=== PATIENT | female | born 1960 | race Caucasian/White ===

== ENCOUNTER 2023-04-22 13:29 | Outpatient (OUT) | payer OTHER, SELFPAY ==
--- NOTE | 2023-04-22 13:34 | XR_ITS ---
The [address] [address] Patient Name: EMILY NEGRETE MRN: [id number] date: 1960 Sex: F Assigned Patient Location: [facility] Current Patient Location: Accession/Order Number: [id number] Exam Date: 04/22/2023 13:45 Report Date: 04/23/2023 08:04 At the request of: MAREN RIGGINS Procedure: XR knee LT 3V PROCEDURE: XR knee LT 3V HISTORY: Knee Contusion S80.00XA ; left knee pain since falling one week ago COMPARISON: None. FINDINGS: BONES:Small periarticular degenerative osteophytes involving all 3 compartments. No significant joint space narrowing or articular surface irregularity. No fracture or dislocation. SOFT TISSUES:No visible soft tissue swelling. EFFUSION:None visible. OTHER: Negative. XR/XR knee LT 3V IMPRESSION: 1. Mild to moderate degenerative joint disease. No acute bone abnormality. Electronically authenticated by: BATSHEVA AGUIRRE Date: 04/23/2023 08:04
--- OUTSIDE RECORDS SUMMARY | 2023-05-21 21:16 | XMS_ITS | CCD ---
Author Name Unknown Address [address] [place] [address] Organization [facility] Care Team Providers Care Manager Access Name Role Phone Maren Maldonado Primary Care Physician REQUEST, DR SY LISTED Admitting Unavaila ble REQUEST, DR SY LISTED Attending Unavaila ble HOY ., DR ENGEL Primary Care Unavailable REQUEST, DR SY LISTED Consulting Unavaila ble GRILLIS ., DR ALL [place]es [place] Admitting Unavaila ble GRILLIS ., DR ALL [place]es [place] Attending Unavaila ble HOY ., DR ENGEL Primary Care Unavailable GRILLIS ., DR ALL [place]es [place] Consulting Unavaila ble SHARP, CHELI Consulting Unavailable GEMBUS, TAY Consulting Unavailable HOY ., DR ENGEL Admitting Unavailable HOY ., DR ENGEL Attending Unavailable HOY ., DR ENGEL Primary Care Unavailable HOY ., DR ENGEL Consulting Unavailable ZIEBER, DR LUCIO Francisco Consulting Unavailable HOY ., DR ENGEL Admitting Unavailable HOY ., DR ENGEL Attending Unavailable HOY ., DR ENGEL Primary Care Unavailable HOY ., DR ENGEL Consulting Unavailable HOY ., DR ENGEL Admitting Unavailable HOY ., DR ENGEL Attending Unavailable HOY ., DR ENGEL Primary Care Unavailable HOY ., DR ENGEL Consulting Unavailable GRILLIS ., DR ALL [place]es [place] Admitting Unavaila ble GRILLIS ., DR ALL [place]es [place] Attending Unavaila ble HOY ., DR ENGEL Primary Care Unavailable GRILLIS ., DR ALL [place]es [place] Consulting Unavaila ble HOY ., DR ENGEL Admitting Unavailable HOY ., DR ENGEL Attending Unavailable HOY ., DR ENGEL Primary Care Unavailable HOY ., DR ENGEL Consulting Unavailable ZIEBER, DR LUCIO Francisco Consulting Unavailable Allergies Allergy Classification Reported Allergen(s) Allergy Type Date of Onset Reaction(s) Facility (1 source) Sulfonamides (Antibiotic); Translations: [sulfa drugs] Drug allergy Edema (finding) [facility] [place] (1 source) Sulfonamides (Antibiotic) Drug allergy (disorder) [facility] Repository Medications Current Medications Medication Drug Class(es) Dates Sig (Normalized) Sig (Original) aspirin 81 mg oral tablet (1 source) Platelet Aggregation Inhibitor, Nonsteroidal Anti-inflammatory Drug Start: 10-24-2021 take 1 tablet by mouth once daily aspirin 81 mg Oral EC Tab 81 mg = 1 tab(s), Oral, Daily, Refills(s) 0 Start Date: 10/24/21 Status: Ordered Diclofenac 75mg Tab-DR (1 source) Start: 10-20-2021 take 1 tablet by mouth twice daily Diclofenac 75mg Tab-DR = 1 tab(s), Oral, BID, Refills(s) 0 Start Date: 10/20/21 Status: Ordered Maxalt ESCROW ASSISTANT 10 mg Tab-Dis (1 source) Start: 10-20-2021 take 1 tablet by mouth once Maxalt ESCROW ASSISTANT 10 mg Tab-Dis 10 mg = 1 tab(s), Oral, Once, Refills(s) 0 Start Date: 10/20/21 Status: Ordered metoprolol tartrate 50 mg oral tablet (1 source) beta-Adrenergic Damian Start: 10-20-2021 take 1 tablet by mouth three times daily Metoprolol tartrate 50 mg Tab 50 mg = 1 tab(s), Oral, TID, Refills(s) 0 Start Date: 10/20/21 Status: Ordered rosuvastatin calcium 5 mg oral tablet (1 source) HMG-CoA Reductase Inhibitor Start: 10-20-2021 take 1 tablet by mouth once daily Crestor 5 mg Tab 5 mg = 1 tab(s), Oral, Daily, Refills(s) 0 Start Date: 10/20/21 Status: Ordered 24 hr venlafaxine 75 mg extended release oral tablet (1 source) Serotonin and Norepinephrine Reuptake Inhibitor Start: 10-20-2021 take 1 capsule by mouth once daily venlafaxine 75 mg Cap-ER 75 mg = 1 cap(s), Oral, Daily, Refills(s) 0 Start Date: 10/20/21 Status: Ordered Vitamin D3 5000 intl units oral capsule (1 source) Start: 10-20-2021 take 1 capsule by mouth once daily at mealtime Vitamin D3 5000 intl units oral capsule 125 mcg = 1 cap(s), Oral, Daily, with food Start Date: 10/20/21 Status: Ordered Problems Active Problems Problem Classification Problem Date Documented Date Episodic/Chronic Disorders of lipid metabolism (2 sources) Hyperlipidemia; Translations: [Pure hypercholesterolemia, unspecified] Onset: 02-26-2022 10-20-2021 Chronic Diverticulosis and diverticulitis (1 source) Diverticulosis of large intestine without perforation or abscess without bleeding; Translations: [DVRTCLOS LG INT NO PERF/ABSC W/O BL] Onset: 02-26-2022 Chronic Esophageal disorders (1 source) Gastroesophageal reflux disease 10-20-2021 Chronic Essential hypertension (2 sources) Hypertensive disorder; Translations: [Essential (primary) hypertension] Onset: 02-26-2022 10-20-2021 Chronic Gastroduodenal ulcer (except hemorrhage) (1 source) Gastric ulcer, unspecified as acute or chronic, without hemorrhage or perforation; Translations: [GASTR ULCR UNS AC/CHRN W/O HEM/PERF] Onset: 02-26-2022 Chronic Headache; including migraine (1 source) Migraine 10-20-2021 Chronic Mood disorders (1 source) Mood disorder 10-20-2021 Chronic Noninfectious gastroenteritis (1 source) Chronic diarrhea 10-20-2021 Episodic Nutritional deficiencies (1 source) Vitamin D deficiency 10-20-2021 Chronic Other skin disorders (1 source) Senile hyperkeratosis; Translations: [Other seborrheic keratosis] Onset: 10-24-2021 Episodic Other upper respiratory disease (1 source) Seasonal allergic rhinitis 10-20-2021 Chronic Residual codes; unclassified (1 source) Obstructive sleep apnea syndrome 10-20-2021 Chronic Spondylosis; intervertebral disc disorders; other back problems (1 source) Spinal stenosis in cervical region 10-20-2021 Episodic Unclassified (1 source) Seborrheic keratosis 10-24-2021 Unclassified (1 source) ESOPHAGITIS UNSPEC WITHOUT BLEEDING; Translations: [ESOPHAGITIS UNSPEC WITHOUT BLEEDING] Onset: 02-26-2022 Unclassified (4 sources) CONTACT W/AND (SUSP) EXPOS COVID-19; Translations: [CONTACT W/AND (SUSP) EXPOS COVID-19] Onset: 09-01-2022 Past or Other Problems Problem Classification Problem Date Documented Da te Episodic/Chronic Deficiency and other anemia (4 sources) Anemia, unspecified; Translations: [ANEMIA UNSPECIFIED] Onset: 01-16-2022 Episodic Other connective tissue disease (4 sources) Pain in right lower leg; Translations: [PAIN IN RIGHT LOWER LEG] Onset: 11-23-2021 Episodic Other gastrointestinal disorders (4 sources) Other fecal abnormalities; Translations: [OTHER FECAL ABNORMALITIES] Onset: 02-21-2022 Episodic Other gastrointestinal disorders (1 source) Change in bowel habit; Translations: [CHANGE IN BOWEL HABIT] Onset: 01-17-2022 Episodic Other screening for suspected conditions (not mental disorders or infectious disease) (4 sources) Encounter for screening mammogram for malignant neoplasm of breast; Translations: [ENC SCR MAMMO MALIG NEOPLASM BREAST] Onset: 11-14-2021 Episodic Residual codes; unclassified (1 source) Acquired absence of both cervix and uterus; Translations: [ACQUIRED ABSENCE BOTH CERVIX AND UTERUS] Onset: 02-26-2022 Episodic Residual codes; unclassified (1 source) Family history of malignant neoplasm of breast; Translations: [FAMILY HX MALIG NEOPLASM OF BREAST] Onset: 12-11-2021 Episodic Unclassified (1 source) CONTACT W/AND (SUSP) EXPOS COVID-19; Translations: [CONTACT W/AND (SUSP) EXPOS COVID-19] Onset: 01-31-2022 Results Test Name Value Interpretation Reference Range Facil ity CBC AUTO DIFFon 08-17-2022 BASO # 0.0 103/ul Normal 0.0-0.1 [facility] ospital Comment on above: Performed By: #### D ATCBC ####[facility] [address] [place] [address]Dr. Zi Finley Basophils/100 WBC (Bld) 0.4 % Normal 0.2-2.0 [facility] Comment on above: Performed By: #### D ATCBC ####[facility] [address] [place] [id number] Finley EO # 0.1 103/ul Normal 0.0-0.7 [facility] ospital Comment on above: Performed By: #### D ATCBC ####[facility] [address] [place], [place] [address]Dr. Zi Finley Eosinophils/100 WBC (Bld) 1.3 % Normal 0.9-7.[address] [facility] Comment on above: Performed By: #### D ATCBC ####[facility] [address] [place], [place] [address]Dr. Zi Finley Erythrocyte distribution wid th (RBC) [Ratio] 13.2 % Normal 11.0-15.0 [facility] Comment on above: Performed By: #### D ATCBC ####[facility] [address] [place], [place] [address]Dr. Zi Finley Hematocrit (Bld) [Volume fraction] 41.1 % Normal 3 6.0-48.[address] [facility] Comment on above: Performed By: #### D ATCBC ####[facility] [address] [place], [place] [address]Dr. Zi Finley Hemoglobin (Bld) [Mass/Vol] 13.2 g/dL Normal 12.0-16. [address] [facility] Comment on above: Performed By: #### D ATCBC ####[facility] [address] [place], [place] [address]Dr. Zi Finley IG # 0.04 10e3/ul Critically high 0.00-0.03 [facility] Comment on above: Performed By: #### D ATCBC ####[facility] [address] [place], [place] [address]Dr. Zi Finley IG % 0.4 % Normal 0.0-0.5 [facility] ospital Comment on above: Performed By: #### D ATCBC ####[facility] [address] [place], [place] [address]Dr. Zi Finley LYMPH # 3.2 103/ul Normal 1.2-3.8 [facility] Comment on above: Performed By: #### D ATCBC ####[facility] [address] [place], [place] [address]Dr. Zi Finley Lymphocytes/100 WBC (Bld) 34.0 % Normal 20.5-60.[address] [facility] Comment on above: Performed By: #### D ATCBC ####[facility] [address] [place] [id number]. Zi Tushar MCH (RBC) [Entitic mass] 29.9 pg Normal 26.7-34.0 [facility] Comment on above: Performed By: #### D ATCBC ####[facility] [address] [place], [place] [id number]. Didimaryuri Tushar MCHC (RBC) [Mass/Vol] 32.1 g/dL Normal 29.9-35.2 [facility] Comment on above: Performed By: #### D ATCBC ####[facility] [address] [place], [place] [address]Dr. Zi Finley MCV (RBC) [Entitic vol] 93.2 fL Normal 81.0-99.0 [facility] Comment on above: Performed By: #### D ATCBC ####[facility] [address] [place], [place] [address]Dr. Zi Finley MONO # 0.8 103/ul Normal 0.3-0.8 [facility] Comment on above: Performed By: #### D ATCBC ####[facility] [address] [place], [place] [address]Dr. Zi Finley Monocytes/100 WBC (Bld) 8.4 % Normal 1.7-12.0 [facility] Comment on above: Performed By: #### D ATCBC ####[facility] [address] [place], [place] [address]Dr. Zi Finley NEUT # 5.2 103/ul Normal 1.4-6.5 [facility] Comment on above: Performed By: #### D ATCBC ####[facility] [address] [place], [place] [address]Dr. Zi Finley Neutrophils/100 WBC (Bld) 55.5 % Normal 43.0-75.0 [facility] Comment on above: Performed By: #### D ATCBC ####[facility] [address] [place], [place] [address]Dr. Zi Finley Platelet mean volume (Bld) [Entitic vol] 8.8 fL Critically low 9.5-13.5 [facility] pital Comment on above: Performed By: #### D ATCBC ####[facility] [address] [place] [id number] Finley PLT 300 103/ul Normal 150-450 [facility] ospital Comment on above: Performed By: #### D ATCBC ####[facility] [address] [place] [id number] Finley RBC 4.41 106/ul Normal 4.20-5.[address] [facility] Comment on above: Performed By: #### D ATCBC ####[facility] [address] [place] [address]Dr. Zi Finley WBC 9.3 103/ul Normal 4.0-11.0 [facility] ospital Comment on above: Performed By: #### D ATCBC ####[facility] [address] [place] [id number]. Zi Finley BLANCA - TSHon 08-17-2022 TSH 1.594 uIU/mL Normal 0.358-3.740 [facility] Comment on above: Performed By: #### D BLANCA VALENCIABMP #### [facility] [address] [place] [address] [address] Zi Finley TSH RANGE SEE BELOW Normal [facility] ospital Comment on above: Result Comment: <0.3 4 UIU/ml HYPERTHYROID 0.34-5.60 UIU/ml EUTHYROID >5.60 UIU/ml HYPOTHYROID Performed By: #### D BLANCA VALENCIABMP #### [facility] [address] [address] [address] Zi Finley BLANCA- BMP WITH LIPIDon 2022 Anion gap [Moles/Vol] 9.4 mmol/L Normal [facility] Comment on above: Performed By: #### D BLANCA VALENCIABMP #### [facility] [address] [address] [address] Zi Finley Calcium [Mass/Vol] 9.7 mg/dL Normal 8.5-10.1 [facility] Comment on above: Performed By: #### D ERIK DATBMP #### [facility] [address] [address] [address] Zi Finley Chloride [Moles/Vol] 107 mmol/L Normal 98-[address] [facility] Comment on above: Performed By: #### D ERIK DATBMP #### [facility] [address] [address] [address] Zi Finley Cholesterol [Mass/Vol] 254 mg/dL Critically high <=[address] [facility] Comment on above: Performed By: #### D ERIK DATBMP #### [facility] [address] [place] [address] Dr. Zi Finley Cholesterol in HDL [Mass/Vol] 70 mg/dL Critically high 4 0-60 [facility] Comment on above: Performed By: #### D ERIK DATBMP #### [facility] [address] [place] [address] Dr. Zi Finley Cholesterol in LDL [Mass/Vol] 153.2 mg/dL Normal [facility] Comment on above: Performed By: #### D ERIK DATBMP #### [facility] [address] [place] [address] Dr. Zi Finley CO2 [Moles/Vol] 32.9 mmol/L Critically high 21.0-32.0 [facility] Comment on above: Performed By: #### D ERIK DATBMP #### [facility] [address] [place] [address] Dr. Zi Finley Creatinine [Mass/Vol] 0.79 mg/dL Normal 0.55-1.02 [facility] Comment on above: Performed By: #### D ERIK DATBMP #### [facility] [address] [place] [address] Dr. Zi Finley EGFR-AF MALAGASY >60 Normal >=60 [facility] Comment on above: Performed By: #### D ERIK DATBMP #### [facility] [address] [address] [address] Zi Finley EGFR-NON AF MALAGASY >60 Normal >=60 [facility] Comment on above: Performed By: #### D ATTLINWOOD DATBMP #### [facility] [address] [address] [address] Zi Finley Glucose [Mass/Vol] 109 mg/dL Critically high 74-106 [facility] Comment on above: Performed By: #### D ATTLINWOOD, DATBMP #### [facility] [address] [address] [address] Zi Finley HDL NORMAL > or = 60 mg/dl - LO W CARDIOVASCULAR RISK <40 mg/dl - HIGH CARDIOVASCULAR RISK Normal [facility] Comment on above: Performed By: #### D ATTLINWOOD DATBMP #### [facility] [address] [place] [address] Dr. Zi Finley LDL CALC NORMAL SEE BELOW Normal [facility] Comment on above: Result Comment: <100 mg/dl OPTIMAL 100 - 129 mg/dl NEAR OR ABOVE OPTIMAL 130 - 159 mg/dl BORDERLINE HIGH 160 - 189 mg/dl HIGH >190 mg/dl VERY HIGH Performed By: #### D ERIK DATBMP #### [facility] [address] [address] [address] Zi Finley Potassium [Moles/Vol] 4.3 mmol/L Normal 3.5-5.1 [facility] Comment on above: Performed By: #### D ERIK DATBMP #### [facility] [address] [address] [address] Zi Finley Sodium [Moles/Vol] 145 mmol/L Normal 136-145 [facility] Comment on above: Performed By: #### D ATTLINWOOD DATBMP #### [facility] [address] [address] [address] Zi Finley Triglyceride [Mass/Vol] 154 mg/dL Critically high <=150 [facility] Comment on above: Performed By: #### D ATTLINWOOD DATBMP #### [facility] [address] [address] [address] Zi Finley Urea nitrogen [Mass/Vol] 21.0 mg/dL Critically high 7.0-[address] [facility] Comment on above: Performed By: #### D ATTSH, DATBMP #### [facility] [address] [address] [address] Zi Finley Urea nitrogen/Creatinine [Mass ratio] 26.6 mg/mg Normal [facility] Comment on above: Performed By: #### D ATTSH, DATBMP #### [facility] [address] [address] [address] Zi Finley VLDL CALC 30.8 mg/dL Normal [facility] ospital Comment on above: Performed By: #### D ATTSH, DATBMP #### [facility] [address] [address] [address] Zi Finley H PYLORI TISSUEon 02-21-2022 H PYL TISSUE, UREASE Negative Normal NEGATIVE [facility] Comment on above: Performed By: #### H PYLT #### [facility] [address] [address] [address] Zi Finley [facility]01 SARS-CoV-2 (COVID-19) RNA VINEET+probe Ql (Unsp spec) Not detected Normal NOT DETECTED [facility] Comment on above: Result Comment: This test is not yet approved or cleared by the [place] FDA. When there are no FDA-approved or cleared tests available, and other criteria are met, FDA can make tests available under an emergency access mechanism called an Emergency Use Authorization (EUA). The EUA for this test is supported by the [place] of Health and Human Service's (HHS's) declaration that circumstances exist to justify the emergency use of in vitro diagnostics for the detection and/or diagnosis of the virus that causes COVID-19. This EUA will remain in effect (meaning this test can be used) for the duration of the COVID-19 declaration justifying emergency of IVDs, unless it is terminated or revoked by FDA (after which the test may no longer be used). When diagnostic testing is negative, the possibility of a false negative should be considered in the context of a patient's recent exposures and the presence of clinical signs and symptoms consistent with SARS-CoV-2. Performed By: #### C VDTBH #### [facility] [address] [address] [address] Zi Finley Covid-19 PCR ([facility])on 01-03 SARS-CoV-2 (COVID-19) RNA VINEET+probe Ql (Unsp spec) Not detected Normal NOT DETECTED [facility] Comment on above: Result Comment: When diagnostic testing is negative, the possibility of a false negative should be considered in the context of a patient's recent exposures and the presence of clinical signs and symptoms consistent with SARS-CoV-2. This test is not yet approved or cleared by the [place] FDA. When there are no FDA-approved or cleared tests available, and other criteria are met, FDA can make tests available under an emergency access mechanism called an Emergency Use Authorization (EUA). The EUA for this test is supported by the [place] of Health and Human Service's declaration that circumstances exist to justify the emergency use of in vitro diagnostics for the detection and/or diagnosis of the virus that causes COVID-19. This EUA will remain in effect for the duration of the COVID-19 declaration justifying emergency of IVDs, unless it is terminated or revoked by the FDA (after which the test may no longer be used). Performed By: #### C VDTBH #### [facility] [address] [place] [address] [address] [address] Zi Finley BLEEDING TIMEon 01-16-2022 BLEEDING TIME 6.0 min Normal 1.0-8.0 [facility] Comment on above: Performed By: #### B LTM ####[facility] [address] [place], [place] [address]Dr. Zi Finley CBC AUTO DIFFon 01-16-2022 BASO # 0.1 103/ul Normal 0.0-0.1 [facility] Comment on above: Performed By: #### C BC #### [facility] [address] [place], [place] [address] Dr. Zi Finley Basophils/100 WBC (Bld) 0.6 % Normal 0.2-2.0 [facility] Comment on above: Performed By: #### C BC #### [facility] [address] [place] [address] Dr. Zi Finley EO # 0.3 103/ul Normal 0.0-0.7 [facility] ospital Comment on above: Performed By: #### C BC #### [facility] [address] [place] [address] Dr. Zi Finley Eosinophils/100 WBC (Bld) 3.2 % Normal 0.9-7.0 [facility] Comment on above: Performed By: #### C BC #### [facility] [address] [place] [address] Dr. Zi Finley Erythrocyte distribution wid th (RBC) [Ratio] 13.1 % Normal 11.0-15.0 [facility] Comment on above: Performed By: #### C BC #### [facility] [address] [place] [address] Dr. Zi Finley Hematocrit (Bld) [Volume fraction] 40.9 % Normal 3 6.0-48.0 [facility] Comment on above: Performed By: #### C BC #### [facility] [address] [place] [address] Dr. Zi Finley Hemoglobin (Bld) [Mass/Vol] 13.0 g/dL Normal 12.0-16. 0 [facility] Comment on above: Performed By: #### C BC #### [facility] [address] [place] [address] Dr. Zi Finley IG # 0.03 10e3/ul Normal 0.00-0.[address] [facility] Comment on above: Performed By: #### C BC #### [facility] [address] [place] [address] Dr. Zi Finley IG % 0.3 % Normal 0.0-0.5 [facility] Comment on above: Performed By: #### C BC #### [facility] [address] [place] [address] Dr. Zi Finley LYMPH # 3.1 103/ul Normal 1.2-3.8 [facility] Comment on above: Performed By: #### C BC #### [facility] [address] [place] [address] Dr. Zi Finley Lymphocytes/100 WBC (Bld) 35.6 % Normal 20.5-60.0 [facility] Comment on above: Performed By: #### C BC #### [facility] [address] [place] [address] Dr. Zi Finley MANUAL DIFF REQ NO Normal [facility] Comment on above: Performed By: #### C BC #### [facility] [address] [place] [address] Dr. Zi Finley MCH (RBC) [Entitic mass] 29.5 pg Normal 26.7-34.0 [facility] Comment on above: Performed By: #### C BC #### [facility] [address] [place] [address] Dr. Zi Finley MCHC (RBC) [Mass/Vol] 31.8 g/dL Normal 29.9-35.2 [facility] Comment on above: Performed By: #### C BC #### [facility] [address] [place] [address] Dr. Zi Finley MCV (RBC) [Entitic vol] 93.0 fL Normal 81.0-99.0 [facility] Comment on above: Performed By: #### C BC #### [facility] [address] [place] [address] Dr. Zi Finley MONO # 0.8 103/ul Normal 0.3-0.8 [facility] Comment on above: Performed By: #### C BC #### [facility] [address] [place] [address] Dr. Zi Finley Monocytes/100 WBC (Bld) 8.5 % Normal 1.7-12.0 [facility] Comment on above: Performed By: #### C BC #### [facility] [address] [place] [address] Dr. Zi Finley NEUT # 4.6 103/ul Normal 1.4-6.5 [facility] ospital Comment on above: Performed By: #### C BC #### [facility] [address] [place], [place] [address] Dr. Zi Finley Neutrophils/100 WBC (Bld) 51.8 % Normal 43.0-75.0 [facility] Comment on above: Performed By: #### C BC #### [facility] [address] [address] [address] Zi Finley Platelet mean volume (Bld) [Entitic vol] 9.1 fL Critically low 9.5-13.5 [facility] pital Comment on above: Performed By: #### C BC #### [facility] [address] [address] [address] Zi Finley PLT 292 103/ul Normal 150-450 [facility] Comment on above: Performed By: #### C BC #### [facility] [address] [address] [address] Zi Finley RBC 4.40 106/ul Normal 4.20-5.[address] [facility] Comment on above: Performed By: #### C BC #### [facility] [address] [address] [address] Zi Finley WBC 8.8 103/ul Normal 4.0-11.0 [facility] Comment on above: Performed By: #### C BC #### [facility] [address] [address] [address] Zi Finley IRONon 01-16-2022 Iron [Mass/Vol] 66.0 ug/dL Normal 50.0-170.0 [facility] Comment on above: Performed By: #### I LUKE #### [facility] [address] [address] [address] Zi Finley PROTIMEon 01-16-2022 INR Coag (PPP) [Relative time] 1.04 {INR} Normal [facility] Comment on above: Performed By: #### P T, PTT ####[facility] [id number] [address]Dr. Zi Finley INR GUIDELINES SEE BELOW Normal The [facility] Comment on above: Result Comment: ANGELY RED INR: 2.0 - 3.0 CONDITIONS NOT LISTED BELOW 2.5 - 3.5 FOR PROSTHETIC HEART VALVE REPLACEMENT 2.5 - 3.5 RECURRENT THROMBOSIS Performed By: #### P T, PTT ####[facility] [id number] [place], [place] [address]ZqDr. Zi Finley PT Coag (PPP) [Time] 11.2 s Normal 9.0-11.6 [facility] Comment on above: Performed By: #### P T, PTT ####[facility] [id number] [place], [place] [address]HaRob Finley PTTon 01-16-2022 aPTT Coag (Bld) [Time] 25.1 s Normal 22.3-36.2 Th [facility] Comment on above: Performed By: #### P T, PTT #### [facility] [address] [place], [place] [address] Dr. Zi Finley US LYNDON DOP LEG RTon 11-24-19 22 US LYNDON DOP LEG RT EXAMINATION: US LYNDON DOP LEG RT HISTORY: Hip pain , right calf pain for one month COMPARISON: No relevant comparison available. FINDINGS: REGION: Right lower extremity THROMBI: None. COMPRESSIBILITY: Normal compressibility. FLOW: Normal waveform and antegrade flow between 5 and 20 cm/s. OTHER: None. IMPRESSION: 1. No deep vein thrombus within the right lower extremity. Electronically authenticated by: LUCIO RAMIREZ Date: 2021-11-23 16:51 Normal [facility] MAMM SCREEN 3D MARCIA CADon 11-14-2021 MG MAMM SCREEN 3D MARCIA CAD Patient: EMILY NEGRETE Exam Date: 11/14/2021 : 1960 Gender:F Ordering : DR MAREN MALDONADO . Admission #: [id number] Family : Order #: [id number] CLICK HERE TO VIEW EXAM RADIOLOGY REPORT PROCEDURE: MAMMOGRAM SCREENING 3D BILATERAL CAD COMPARISON: MG MAMM SCREEN 3D MARCIA CAD, 10/21/2020. MG MAMM LT DIAG W CAD, 07/10/2019. INDICATIONS: Screening mammography Calculator Name NCI Breast Cancer Risk Assessment Tool 5 Year Breast Cancer Risk 4.70% Lifetime Breast Cancer Risk 20.70% Personal Breast Cancer No Personal Ovarian Cancer No Treatments None Family Cancers Sister with breast cancer at age 37. LOCATION: [facility] BREAST COMPOSITION: Scattered areas fibroglandular density. FINDINGS: DIAGNOSTIC CATEGORY 2--BENIGN FINDING: RIGHT BREAST: No significant suspicious finding. Scattered benign-appearing nodules are present. No significant change has occurred. LEFT BREAST: No significant suspicious finding. Stable biopsy marker clip within the anterior upper-outer quadrant. No significant change has occurred. RECOMMENDATIONS: ROUTINE MAMMOGRAM AND CLINICAL EVALUATION IN 12 MONTHS. PLEASE NOTE: A NORMAL MAMMOGRAM DOES NOT EXCLUDE THE POSSIBILITY OF BREAST CANCER. A CLINICALLY SUSPICIOUS PALPABLE LUMP SHOULD BE BIOPSIED. Dictated by: Lucio Ramirez M.D. on 11/14/2021 at 13:48 Approved by: Lucio Ramirez M.D. on 11/14/2021 at 13:50 Normal [facility] Ambulatory Visit Summaryon 0 10-24-2021 Ambulatory Visit Summary EMILY NEGRETE :1960 Visit Date:10/24/2021 Ambulatory Visit Instructions Your Diagnosis Seborrheic keratoses Your Care Team Attending Physician - VIKASH ESPINOZA, All [place] Primary Care Physician - Maren Maldonado MD This Is Your Medications List aspirin (aspirin 81 mg Oral EC Tab) cholecalciferol (Vitamin D3 5000 intl units oral capsule) diclofenac (Diclofenac 75mg Tab-DR) metoprolol (Metoprolol tartrate 50 mg Tab) rizatriptan (Maxalt ESCROW ASSISTANT 10 mg Tab-Dis) rosuvastatin (Crestor 5 mg Tab) venlafaxine (venlafaxine 75 mg Cap-ER) Procedures Performed History of cervical spine surgery, History of lumbar spine surgery, Rotator cuff repair, EMMA BSO - Total abdominal hysterectomy and bilateral salpingo-oophorectomy, Tubal ligation. Discharge Vitals Heart Rate (Peripheral) 80 Respiratory Rate 16 Blood Pressure 136/72 Medications What How Much When Instructions Unchanged aspirin (aspirin 81 mg Oral EC Tab) 1 Tablets By Mouth Every day Unchanged cholecalciferol (Vitamin D3 5000 intl units oral capsule) 1 Capsules By Mouth Every day with food Unchanged diclofenac (Diclofenac 75mg Tab-DR) 1 Tablets By Mouth 2 times a day Unchanged metoprolol (Metoprolol tartrate 50 mg Tab) 1 Tablets By Mouth 3 times a day Unchanged rizatriptan (Maxalt ESCROW ASSISTANT 10 mg Tab-Dis) 1 Tablets By Mouth Once Unchanged rosuvastatin (Crestor 5 mg Tab) 1 Tablets By Mouth Every day Unchanged venlafaxine (venlafaxine 75 mg Cap-ER) 1 Capsules By Mouth Every day Allergies sulfa drugs (Edema) Problems Ongoing - Any problem that you are currently receiving treatment for. Cervical spinal stenosis Chronic diarrhea GERD (gastroesophageal reflux disease) HTN (hypertension) Hyperlipidemia Migraine headache Mood disorder WHITLEY (obstructive sleep apnea) Seasonal allergic rhinitis Seborrheic keratoses Vitamin D deficiency Normal [facility] Comprehensive Metabolic Empo n 03-31-2021 Albumin [Mass/Vol] 4.0 g/dL Normal 3.2-5.5 [facility] Comment on above: Performed By: #### E BS A1C, EBS LIPID, EBS CMP #### [facility] [address] [id number] [place] Albumin/Globulin [Mass ratio] 1.4 {ratio} Normal [facility] Comment on above: Performed By: #### E BS A1C, EBS LIPID, EBS CMP #### [facility] [address] [place] [address] [place] ALP [Catalytic activity/Vol] 80 U/L Normal 32-92 [facility] Comment on above: Performed By: #### E BS A1C, EBS LIPID, EBS CMP #### [facility] [address] [place] [address] [place] ALT [Catalytic activity/Vol] 21 U/L Normal 10-60 [facility] Comment on above: Performed By: #### E BS A1C, EBS LIPID, EBS CMP #### [facility] [address] [place] [address] [place] AST [Catalytic activity/Vol] 20 U/L Normal 10- [facility] Comment on above: Performed By: #### E BS A1C, EBS LIPID, EBS CMP #### [facility] [address] [place] [address] [place] Bilirubin [Mass/Vol] 0.7 mg/dL Normal 0.3-1.2 [facility] Comment on above: Performed By: #### E BS A1C, EBS LIPID, EBS CMP #### [facility] [address] Calcium [Mass/Vol] 9.9 mg/dL Normal 8.2-10.2 [facility] Comment on above: Performed By: #### E BS A1C, EBS LIPID, EBS CMP #### [facility] [address] Chloride [Moles/Vol] 102 mmol/L Normal 95-114 [facility] Comment on above: Performed By: #### E BS A1C, EBS LIPID, EBS CMP #### [facility] [address] CO2 [Moles/Vol] 27.2 mmol/L Normal 22.0-30.0 [facility] Comment on above: Performed By: #### E BS A1C, EBS LIPID, EBS CMP #### [address] Creatinine [Mass/Vol] 0.81 mg/dL Normal 0.44-1.03 [facility] Comment on above: Performed By: #### E BS A1C, EBS LIPID, EBS CMP #### [address] Estimated GFR ( Lisa > 60 [facility] [place] Comment on above: Result Comment: GFR estimated reference range: According to KDOQI guidelines, <60 ml/min/1.73m2 is sufficient to diagnose a patient with chronic kidney disease. Performed By: #### E BS A1C, EBS LIPID, EBS CMP #### [address] Estimated GFR (Non- Am > 60 [facility] [place] Comment on above: Performed By: #### E BS A1C, EBS LIPID, EBS CMP #### [address] Globulin (S) [Mass/Vol] 2.9 g/dL Normal [facility] Comment on above: Performed By: #### E BS A1C, EBS LIPID, EBS CMP #### [address] Glucose [Mass/Vol] 106 mg/dL High 70-100 [facility] Comment on above: Result Comment: ADA recommended reference range Performed By: #### E BS A1C, EBS LIPID, EBS CMP #### [facility] [address] Potassium [Moles/Vol] 5.1 mmol/L Normal 3.5-5.1 [facility] Comment on above: Performed By: #### E BS A1C, EBS LIPID, EBS CMP #### [facility] [address] Protein [Mass/Vol] 6.9 g/dL Normal 6.1-7.9 [facility] Comment on above: Performed By: #### E BS A1C, EBS LIPID, EBS CMP #### [facility] [address] Sodium [Moles/Vol] 139 mmol/L Normal 136-146 [facility] Comment on above: Performed By: #### E BS A1C, EBS LIPID, EBS CMP #### [facility] [address] Urea nitrogen [Mass/Vol] 20 mg/dL Normal 9-23 [facility] Comment on above: Performed By: #### E BS A1C, EBS LIPID, EBS CMP #### [facility] [address] EBS A1C with Estimated Avleo Tiff ras 03-31-2021 Glucose [Mass/Vol] 123 mg/dL Normal [facility] Comment on above: Result Comment: PERF ORMED BY: [facility] [address] [place] [address] PATHOLOGIST LUMBER TRIMMER KRISTY FREEMAN M.D. Performed By: #### E BS A1C, EBS LIPID, EBS CMP #### [facility] [address] HbA1c (Bld) [Mass fraction] 5.9 % High 4.3-5.6 [facility] Comment on above: Result Comment: Incr eased risk for diabetes: 5.7 - 6.4 diabetes: >6.4 glycemic control for adults with diabetes: <7.0 Performed By: #### E BS A1C, EBS LIPID, EBS CMP #### [facility] [address] Lipid Profileon 03-31-2021 Cholesterol [Mass/Vol] 233 mg/dL High 140-200 [facility] Comment on above: Result Comment: Chol less than 200 mg/dl low risk Chol 201-239 mg/dl borderline risk Chol 240 mg/dl and greater high risk Performed By: #### E BS A1C, EBS LIPID, EBS CMP #### [facility] [address] Cholesterol in HDL [Mass/Vol] 70 mg/dL Normal 35-85 [facility] Comment on above: Result Comment: HDL CHOL ATP-III CLASSIFICATION Cardiovascular Risk HDL > or equal to 60 mg/dL LOW HDL < 40 mg/dL HIGH Performed By: #### E BS A1C, EBS LIPID, EBS CMP #### [facility] [address] Cholesterol.total/Cholestero l in HDL [Mass ratio] 3.3 {ratio} Normal <5.0 [facility] Comment on above: Result Comment: PERF ORMED BY: [place] [address] PATHOLOGIST LUMBER TRIMMER KRISTY FREEMAN M.D. Performed By: #### E BS A1C, EBS LIPID, EBS CMP #### [facility] [address] LDL Cholesterol,Calculated 132 mg/dL High 0-100 [facility] Comment on above: Result Comment: LDL ATP III CLASSIFICATION LDL less than 100 mg/dL Optimal LDL 100-129 mg/dL Near or above optimal LDL 130-159 mg/dL Borderline high LDL 160-189 mg/dL High LDL greater than 189 mg/dL Very high Performed By: #### E BS A1C, EBS LIPID, EBS CMP #### [facility] [address] [id number] [place] Triglyceride w/Reflex 155 mg/dL High 35-149 [facility] Comment on above: Result Comment: TRIG ATP III CLASSIFICATION TRIG less than 150 mg/dL Normal TRIG 150-199 mg/dL Borderline high TRIG 200-500 mg/dL High TRIG greater than 500 mg/dL Very high Standard traceable to the Center for Disease Conrtrol and Prevention (CDC) test method. Performed By: #### E BS A1C, EBS LIPID, EBS CMP #### [facility] [address] [place] [address] [facility] VLDL CHOLESTEROL 31 mg/dL Normal [facility] Comment on above: Performed By: #### E BS A1C, EBS LIPID, EBS CMP #### [facility] [address] [id number] [facility] Vital Signs Date Time Vital Sign Value Performing Clinician Sabine nayak 10-24-2021 15:23-0400 Blood Pressure Location [facility] 10-24-2021 15:23-0400 Diastolic blood pressure 72 mm[Hg] [facility] 10-24-2021 15:23-0400 Heart rate 80 /min [facility] 10-24-2021 15:23-0400 Respiratory rate 16 /min [facility] [place] 10-24-2021 15:23-0400 Systolic blood pressure 136 mm[Hg] [facility] [place] Encounters Encounter Date Encounter Type Care Provider Facility Start: 08-17-2022 End: 08-18-[address] SY LISTED REQUEST Facility:[facility] Start: 02-21-2022 End: 02-21-[address] ALL RICE . Facility:[facility] Start: 02-19-2022 Encounter for preprocedural laboratory examination DR ALL RICE . [facility] Start: 02-17-2022 End: 02-18-[address] ALL RICE . Facility:[facility] Start: 02-17-2022 End: 02-18-2022 Encounter for preprocedural laboratory examination DR ALL RICE . Facility:[facility] Start: 01-31-2022 End: 02-01-[address] MAREN MALDONADO . Facility:[facility] Start: 01-16-2022 End: 01-17-[address] MAREN MALDONADO . Facility:[facility] Start: 11-23-2021 End: 11-24-[address] MAREN MALDONADO . Facility:[facility] Start: 11-14-2021 End: 11-15-[address] MAREN MALDONADO . Facility:[facility] Start: 10-24-2021 End: 10-24-2021 Patient encounter procedure All [facility] Lam[facility] Procedures Date Procedure Procedure Detail Performing Clinician History of operative procedure on lumbar spinal structure All [facility] History of surgical procedure on cervical spine All [facility] Ligation of fallopian tube Cortney zepeda NILL Repair of musculoten dinous cuff of shoulder All N[facility] Total abdominal hyst erectomy with bilateral salpingo-oophorectomy All [facility] Payers Date Payer Category Payer Unknown [id number] 2.16.84 [id number] 1960 Unknown [id number] 2.16.84 [id number] 1960 Unknown [id number] 2.16.84 [id number] 1960 Unknown [id number] 2.16.84 [id number] 1960 Unknown [id number] 2.16.84 [id number] 1960 Unknown [id number] 2.16.84 [id number] 1959 Self-pay [id number] 1959 Unknown [id number] Unknown [id number] 2.16.84 [id number] Social History Date Type Detail Facility Start: 10-24-2021 Tobacco smoking status Never s moked tobacco (finding) General [facility] Tobacco smoking status Never Gener al Surgery [facility] Sex Assigned At Female Genera l Surgery [facility] Clinical Note 10-24-2021 Note Date & Type Note Facility 10-24-2021 Note Chief Complaint consultation for nevus x 2 HPI Staff 61 year old female presents on self referral consultation for nevus right upper thigh and right lower leg. Both are becoming darker in color. Neither are painful. They do not bleed or itch. History of Present Illness 61 yo female presents for evaluation of changing skin lesion; area above right knee has not changed, no bleeding or pain; lower posterior right extremity with similar lesion, but has changed some in pigmentation around edge of lesion; no itching, no bleeding or ulceration; no personal or fmhx of skin cancer. on baby asa and Diclofenac. Review of Systems PHQ Score Initial Depression Screen Score: 0 ROS - Provider Constitutional: no fever, no sweats, no weight loss. Eyes: no glasses, no blurred vision, no visual loss. ENMT: no dentures, no hoarseness, no swallowing difficulties, no hearing loss, no ear infection(s), no nose bleeds. Cardiovascular: normal blood pressure, no chest pain, regular heartbeat, no heart murmur. Respiratory: no shortness of breath, no cough, no asthma, no wheezing. Gastrointestinal: no nausea, no vomiting, no diarrhea, no constipation, no blood in stool, no change in bowel habits, no abdominal pain, no hepatitis. Genitourinary: no kidney stones, no urine infection, no dysuria. Musculoskeletal: no pain, no weakness. Skin: yes changing moles, no rash, no skin lumps. Neurologic: no seizures, no epilepsy, no headache. Psychiatric: no emotional or psychiatric problem. Heme/Lymph: no bleeding problems, no anemia, no blood clots, no transfusions. Allergy/Immunologic: no swollen lymph nodes/glands, no IV drug abuse. Other: Additional ROS info: Except as noted in the above Review of Systems and in the History of Present Illness, all other systems have been reviewed and are negative or noncontributory. Physical Exam Vitals & Measurements HR: 80(Peripheral) RR: 16 BP: 136/72 Musculoskeletal: normal gait, digits and nails without infection, nodes, cyanosis, clubbing. Skin: no rashes, right anterior lower extremity above knee with 7 mm coughlin lesion, uniform, scaly; posterior lower extremity with 5 mm keratotic, coughlin lesion, round; no ulceration. no ulcers, no subcutaneous nodules, induration. Psychiatric/Neuro: oriented to time, place, person, judgement normal, affect appropriate for age, insight intact, no focal deficits. Tests: review of old records completed, Assessment/Plan 1. Seborrheic keratoses (L82.1: Other seborrheic keratosis) no need for excision at this time, call with problems/questions. Follow-up No qualifying data available Problem List/Past Medical History Ongoing Cervical spinal stenosis Chronic diarrhea GERD (gastroesophageal reflux disease) HTN (hypertension) Hyperlipidemia Migraine headache Mood disorder WHITLEY (obstructive sleep apnea) Seasonal allergic rhinitis Seborrheic keratoses Vitamin D deficiency Historical No qualifying data Procedure/Surgical History History of cervical spine surgery, History of lumbar spine surgery, Rotator cuff repair, EMMA BSO - Total abdominal hysterectomy and bilateral salpingo-oophorectomy, Tubal ligation. Medications aspirin 81 mg Oral EC Tab, 81 mg= 1 tab(s), Oral, Daily Crestor 5 mg Tab, 5 mg= 1 tab(s), Oral, Daily Diclofenac 75mg Tab-DR, 1 tab(s), Oral, BID Maxalt ESCROW ASSISTANT 10 mg Tab-Dis, 10 mg= 1 tab(s), Oral, Once Metoprolol tartrate 50 mg Tab, 50 mg= 1 tab(s), Oral, TID venlafaxine 75 mg Cap-ER, 75 mg= 1 cap(s), Oral, Daily Vitamin D3 5000 intl units oral capsule, 125 mcg= 1 cap(s), Oral, Daily Allergies sulfa drugs (Edema) Social History Alcohol - Denies Alcohol Use, 10/24/2021 Substance Abuse - Denies Substance Abuse, 10/24/2021 Tobacco Never (less than 100 in lifetime) Tobacco Use:. Never Smokeless Tobacco Use:., 10/24/2021 Family History Cardiac arrest: Mother and Father. Primary malignant neoplasm of female breast: Sister. Stroke: Father. [facility] Comment on above: Result Comment: Elec tronically Signed By: VIKASH ESPINOZA, All Quinones\Date and Time Signed: 10/24/21 15:53 EDT Evaluation + Plan note Note Date & Type Note Facility Evaluation + Plan note No data available for this section [facility] Discharge instructions Note Date & Type Note Facility Hospital Discharge instructions No data available for this section [facility] [place] Summary Purpose Family History No Family History Records FoundNo Family History Records FoundNo Family History Records Found Advance Directives No Advanced Directives Records FoundNo Advanced Directives Records FoundNo Advanced Directives Records Found Additional Source Comments INFORMATION SOURCE (unrecogn ized section and content) DATE CREATED AUTHOR 07/20/2021 [facility] DATE CREATED AUTHOR AUTHOR'S ORGANIZ ATION 10/25/2021 [facility] DATE CREATED AUTHOR AUTHOR'S ORGANIZ ATION 08/17/2022 [facility] FOR RECORDS PERTAINING TO PATIENTS WHO ARE OR HAVE BEEN ENROLLED IN A CHEMICAL DEPENDENCY/SUBSTANCEABUSE PROGRAM, SOME INFORMATION MAY BE OMITTED. This clinical summary was aggregated from multiple sources. Caution should be exercised in using it in the provision of clinical care. This summary normalizes information from multiple sources, and as a consequence, information in this document may materially change the coding, format and clinical context of patient data. In addition, data may be omitted in some cases. CLINICAL DECISIONS SHOULD BE BASED ON THE PRIMARY CLINICAL RECORDS. [employer] provides no warranty or guarantee of the accuracy or completeness of information in this document.
== END 2023-04-22 13:30 | disposition home or self-care (01) ==
LOC: RAD 13:29
PROVIDERS: PCP Family Medicine; Visit Provider Family Medicine
DX: S80.00XA Contusion of unspecified knee, initial encounter (principal); M17.12 Unilateral primary osteoarthritis, left knee
CPT/HCPCS: 73562

== ENCOUNTER 2024-01-30 08:59 | Outpatient (REF) | payer OTHER, SELFPAY ==
--- OUTSIDE RECORDS SUMMARY | 2024-01-30 09:25 | XMS_ITS | CCD ---
Author Organization [facility] Care Team Providers Care Funds Development Director Name Role Phone Maren Maldonado Primary Care [...] drugs] Drug allergy Edema (finding) [facility] (1 source) Sulfonamides (Antibiotic) Drug allergy (disorder) [facility] Repository Medications Current Medications Medication Drug Class(es) [...] 0 Start Date: 10/20/21 Status: Ordered Maxalt LOG FEEDER 10 mg Tab-Dis (1 source) Start: 10-20-2021 take 1 tablet by mouth once Maxalt LOG FEEDER 10 mg Tab-Dis 10 mg = 1 [...] Translations: [CONTACT W/AND (SUSP) EXPOS COVID-19] Onset: 02-01-2022 Past or Other Problems Problem Classification Problem [...] 08-17-2022 BASO # 0.0 103/ul Normal 0.0-0.1 [facility] Comment on above: Performed By: #### D ATCBC ####[facility] [address] [place] [address]Dr. Zi Finley Basophils/100 WBC (Bld) 0.4 % Normal 0.2-2.0 [facility] Comment on above: Performed By: #### D ATCBC ####[facility] [address] [place] [id number] Finley EO # 0.1 103/ul Normal 0.0-0.7 [facility] Comment on above: Performed By: #### D ATCBC ####[facility] [address] [place] [id number] Finley Eosinophils/100 WBC (Bld) 1.3 % Normal 0.9-7.0 [facility] Comment on above: Performed By: #### D ATCBC ####[facility] [address] [place], [place] [address]Dr. Zi Finley Erythrocyte distribution width (RBC) [Ratio] 13.2 % Normal 11.0-15.0 [facility] Comment on above: Performed By: #### D ATCBC ####[facility] [address] [place], [place] [address]Dr. Zi Finley Hematocrit (Bld) [Volume fraction] 41.1 % Normal 36.0-48.0 [facility] Comment on above: Performed By: #### D ATCBC ####[facility] [address] [place], [place] [address]Dr. Zi Finley Hemoglobin (Bld) [Mass/Vol] 13.2 g/dL Normal 12.0-16.0 [facility] Comment on above: Performed By: #### D ATCBC ####[facility] [address] [place], [place] [address]Dr. Zi Finley IG # 0.04 10e3/ul Critically high 0.00-0.03 [facility] Comment on above: Performed By: #### D ATCBC ####[facility] [address] [place], [place] [address]Dr. Zi Finley IG % 0.4 % Normal 0.0-0.5 [facility] Comment on above: Performed By: #### D ATCBC ####[facility] [address] [place], [place] [address]Dr. Zi Finley LYMPH # 3.2 103/ul Normal 1.2-3.8 [facility] Comment on above: Performed By: #### D ATCBC ####[facility] [address] [place], [place] [address]Dr. Zi Finley Lymphocytes/100 WBC (Bld) 34.0 % Normal 20.5-60.0 [facility] Comment on above: Performed By: #### D ATCBC ####[facility] [address] [place], [place] [address]Dr. Zi Finley MCH (RBC) [Entitic mass] 29.9 pg Normal 26.7-34.0 [facility] Comment on above: Performed By: #### D ATCBC ####[facility] [address] [place] [address]Dr. Zi Finley MCHC (RBC) [Mass/Vol] 32.1 g/dL Normal 29.9-35.2 [facility] Comment on above: Performed By: #### D ATCBC ####[facility] [address] [place] [address]Dr. Zi Finley MCV (RBC) [Entitic vol] 93.2 fL Normal 81.0-99.0 [facility] Comment on above: Performed By: #### D ATCBC ####[facility] [address] [place], [place] [address]Dr. Zi Finley MONO # 0.8 103/ul Normal 0.3-0.8 [facility] Comment on above: Performed By: #### D ATCBC ####[facility] Y[address] [place], [place] [address]Dr. Zi Tushar Monocytes/100 WBC (Bld) 8.4 % Normal 1.7-12.0 [facility] Comment on above: Performed By: #### D ATCBC ####[facility] [address] [place], [place] [address]Dr. Zi Finley NEUT # 5.2 103/ul Normal 1.4-6.5 [facility] Comment on above: Performed By: #### D ATCBC ####[facility] [address] [place], [place] [address]Dr. Zi Tushar Neutrophils/100 WBC (Bld) 55.5 % Normal 43.0-75.0 [facility] Comment on above: Performed By: #### D ATCBC ####[facility] [address] [place] [address]Dr. Zi Tushar Platelet mean volume (Bld) [Entitic vol] 8.8 fL Critically low 9.5-13.5 [facility] Comment on above: Performed By: #### D ATCBC ####[facility] [address] [place], [place] [address]Bx. Zi Finley PLT 300 103/ul Normal 150-450 [facility] Comment on above: Performed By: #### D ATCBC ####[facility] [address] [place], [place] [address]Ng. Zi Finley RBC 4.41 106/ul Normal 4.20-5.40 [facility] Comment on above: Performed By: #### D ATCBC ####[facility] [address] [place], [place] [address]Lf. Zi Finley WBC 9.3 103/ul Normal 4.0-11.0 [facility] Comment on above: Performed By: #### D ATCBC ####[facility] [address] [place] [id number]. Zi Finley BLANCA - TSHon 08-17-2022 TSH 1.594 uIU/mL Normal 0.358-3.740 [facility] Comment on above: Performed By: #### D ATTSH DATBMP #### [facility] [address] [address] [address] Zi Finley TSH RANGE SEE BELOW Normal [facility] Comment on above: Result Comment: <0.3 4 UIU/ml HYPERTHYROID 0.34-5.60 UIU/ml EUTHYROID >5.60 UIU/ml HYPOTHYROID Performed By: #### D ERIK DATBMP #### [facility] [address] [address] [address] Zi Finley BLANCA- BMP WITH LIPIDon 2022 Anion gap [Moles/Vol] 9.4 mmol/L Normal [facility] Comment on above: Performed By: #### D ATTLINWOOD DATBMP #### [facility] [address] [address] [address] Zi Finley Calcium [Mass/Vol] 9.7 mg/dL Normal 8.5-10.[address] [facility] Comment on above: Performed By: #### D ATTSH DATBMP #### [facility] [address] [address] [address] Zi Finley Chloride [Moles/Vol] 107 mmol/L Normal 98-107 [facility] Comment on above: Performed By: #### D ATTLINWOOD, DATBMP #### [facility] [address] [address] [address] Zi Finley Cholesterol [Mass/Vol] 254 mg/dL Critically high <=200 [facility] Comment on above: Performed By: #### D ATTLINWOOD, DATBMP #### [facility] [address] [address] [address] Zi Finley Cholesterol in HDL [Mass/Vol] 70 mg/dL Critically high 40-60 [facility] Comment on above: Performed By: #### D ATTLINWOOD, DATBMP #### [facility] [address] [place] [address] Dr. Zi Finley Cholesterol in LDL [Mass/Vol] 153.2 mg/dL Normal [facility] Comment on above: Performed By: #### D ATTLINWOOD, DATBMP #### [facility] [address] [address] [address] Zi Finley CO2 [Moles/Vol] 32.9 mmol/L Critically high 21.0-32.0 [facility] Comment on above: Performed By: #### D ATTLINWOOD, DATBMP #### [facility] [address] [place] [address] Dr. Zi Finley Creatinine [Mass/Vol] 0.79 mg/dL Normal 0.55-1.02 [facility] Comment on above: Performed By: #### D ATTSH, DATBMP #### [facility] [address] [place] [address] Dr. Zi Finley EGFR-AF IRISH >60 Normal >=60 [facility] [place] [facility] Comment on above: Performed By: #### D ATTLINWOOD, DATBMP #### [facility] [address] [place] [address] Dr. Zi Finley EGFR-NON AF IRISH >60 Normal >=60 [facility] Comment on above: Performed By: #### D ATTSH, DATBMP #### [facility] [address] [address] [address] Zi Finley Glucose [Mass/Vol] 109 mg/dL Critically high 74-106 [facility] Comment on above: Performed By: #### D ERIK DATBMP #### [facility] [address] [address] [address] Zi Finley HDL NORMAL > or = 60 mg/dl - LO W CARDIOVASCULAR RISK <40 mg/dl - HIGH CARDIOVASCULAR RISK Normal [facility] Comment on above: Performed By: #### D ERIK DATBMP #### [facility] [address] [address] [address] Zi Finley LDL CALC NORMAL SEE BELOW Normal [facility] Comment on above: Result Comment: <100 mg/dl OPTIMAL 100 - 129 mg/dl NEAR OR ABOVE OPTIMAL 130 - 159 mg/dl BORDERLINE HIGH 160 - 189 mg/dl HIGH >190 mg/dl VERY HIGH Performed By: #### D ERIK DATBMP #### [facility] [address] [address] [address] Zi Finley Potassium [Moles/Vol] 4.3 mmol/L Normal 3.5-5.1 [facility] Comment on above: Performed By: #### D ERIK DATBMP #### [facility] [address] [address] [address] Zi Finley Sodium [Moles/Vol] 145 mmol/L Normal 136-[address] [facility] Comment on above: Performed By: #### D ERIK DATBMP #### [facility] [address] [address] [address] Zi Finley Triglyceride [Mass/Vol] 154 mg/dL Critically high <=150 [facility] Comment on above: Performed By: #### D ERIK DATBMP #### [facility] [address] [address] [address] Zi Finley Urea nitrogen [Mass/Vol] 21.0 mg/dL Critically high 7.0-18.0 [facility] Comment on above: Performed By: #### D ERIK DATBMP #### [facility] [address] [address] [address] Zi Finley Urea nitrogen/Creatinine [Mass ratio] 26.6 mg/mg Normal [facility] Comment on above: Performed By: #### D ATTSH, DATBMP #### [facility] [address] [address] [address] Zi Finley VLDL CALC 30.8 mg/dL Normal [facility] Comment on above: Performed By: #### D ATTSH, DATBMP #### [facility] [address] [address] [address] Zi Finley H PYLORI TISSUEon 02-21-2022 H PYL TISSUE, UREASE Negative Normal NEGATIVE [facility] Comment on above: Performed By: #### H PYLT #### [facility] [address] [address] [address] Zi Finley Covid-19 PCR (CVDTB)on 02-01 SARS-CoV-2 (COVID-19) RNA VINEET+probe Ql (Unsp spec) Not detected Normal NOT DETECTED [facility] Comment on above: Result Comment: This test is not yet approved or cleared by the [place] FDA. When there are no FDA-approved or cleared tests available, and other criteria are met, FDA can make tests available under an emergency access mechanism called an Emergency Use Authorization (EUA). The EUA for this test is supported by the [employer] Aide of Health and Human Service's (HHS's) declaration [...] SARS-CoV-2. Performed By: #### C VDTBH #### [facility] [address] [address] [address] Zi Finley Covid-19 PCR (CVDTBH)on 01-03 SARS-CoV-2 (COVID-19) RNA VINEET+probe Ql (Unsp spec) Not detected Normal NOT DETECTED [facility] Comment on above: Result Comment: When diagnostic [...] for this test is supported by the [place] of Health and Human Service's declaration that [...] used). Performed By: #### C VDTBH #### [facility] [address] [place] [address] Dr. Zi Finley BLEEDING TIMEon 01-16-2022 BLEEDING TIME 6.0 min Normal 1.0-8.0 [facility] Comment on above: Performed By: #### B LTM ####[facility] [address] [place], [place] [address]BaDr. Zi Finley CBC AUTO DIFFon 01-16-2022 BASO # 0.1 103/ul Normal 0.0-0.1 [facility] Comment on above: Performed By: #### C BC #### [facility] [address] [place] [address] Dr. Zi Finley Basophils/100 WBC (Bld) 0.6 % Normal 0.2-2.0 [facility] Comment on above: Performed By: #### C BC #### [facility] [address] [place] [address] Dr. Zi Finley EO # 0.3 103/ul Normal 0.0-0.7 [facility] Comment on above: Performed By: #### C BC #### [facility] [address] [place] [address] Dr. Zi Finley Eosinophils/100 WBC (Bld) 3.2 % Normal 0.9-7.0 [facility] Comment on above: Performed By: #### C BC #### [facility] [address] [place] [address] Dr. Zi Finley Erythrocyte distribution width (RBC) [Ratio] 13.1 % Normal 11.0-15.0 [facility] Comment on above: Performed By: #### C BC #### [facility] [address] [place] [address] Dr. Zi Finley Hematocrit (Bld) [Volume fraction] 40.9 % Normal 36.0-48.0 [facility] Comment on above: Performed By: #### C BC #### [facility] [address] [place] [address] Dr. Zi Finley Hemoglobin (Bld) [Mass/Vol] 13.0 g/dL Normal 12.0-16.0 [facility] Comment on above: Performed By: #### C BC #### [facility] [address] [place] [address] Dr. Zi Finley IG # 0.03 10e3/ul Normal 0.00-0.03 [facility] Comment on above: Performed By: #### C BC #### [facility] [address] [place] [address] Dr. Zi Finley IG % 0.3 % Normal 0.0-0.5 [facility] Comment on above: Performed By: #### C BC #### [facility] [address] [place] [address] Dr. Zi Finley LYMPH # 3.1 103/ul Normal 1.2-3.8 [facility] Comment on above: Performed By: #### C BC #### [facility] [address] [place] [address] Dr. Zi Finley Lymphocytes/100 WBC (Bld) 35.6 % Normal 20.5-60.0 [facility] Comment on above: Performed By: #### C BC #### [facility] [address] [place] [address] Dr. Zi Finley MANUAL DIFF REQ NO Normal [facility] Comment on above: Performed By: #### C BC #### [facility] [address] [place] [address] Dr. Zi Finley MCH (RBC) [Entitic mass] 29.5 pg Normal 26.7-34.0 [facility] Comment on above: Performed By: #### C BC #### [facility] [address] [place] [address] Dr. Zi Finley MCHC (RBC) [Mass/Vol] 31.8 g/dL Normal 29.9-35.2 [facility] Comment on above: Performed By: #### C BC #### [facility] [address] [place] [address] Dr. Zi Finley MCV (RBC) [Entitic vol] 93.0 fL Normal 81.0-99.0 [facility] Comment on above: Performed By: #### C BC #### [facility] [address] [place] [address] Dr. Zi Finley MONO # 0.8 103/ul Normal 0.3-0.8 [facility] Comment on above: Performed By: #### C BC #### [facility] [address] [place] [address] Dr. Zi Finley Monocytes/100 WBC (Bld) 8.5 % Normal 1.7-12.0 [facility] Comment on above: Performed By: #### C BC #### [facility] [address] [place] [address] Dr. Zi Finley NEUT # 4.6 103/ul Normal 1.4-6.5 [facility] Comment on above: Performed By: #### C BC #### [facility] [address] [place] [address] Dr. Zi Finley Neutrophils/100 WBC (Bld) 51.8 % Normal 43.0-75.0 [facility] Comment on above: Performed By: #### C BC #### [facility] [address] [address] [address] Zi Finley Platelet mean volume (Bld) [Entitic vol] 9.1 fL Critically low 9.5-13.5 [facility] Comment on above: Performed By: #### C BC #### [facility] [address] [address] [address] Zi Finley PLT 292 103/ul Normal 150-450 [facility] Comment on above: Performed By: #### C BC #### [facility] [address] [address] [address] Zi Finley RBC 4.40 106/ul Normal 4.20-5.40 [facility] Comment on above: Performed By: #### C BC #### [facility] [address] [address] [address] Zi Finley WBC 8.8 103/ul Normal 4.0-11.0 [facility] Comment on above: Performed By: #### C BC #### [facility] [address] [address] [address] Zi Finley IRONon 01-16-2022 Iron [Mass/Vol] 66.0 ug/dL Normal 50.0-170.0 [facility] Comment on above: Performed By: #### I LUKE #### [facility] [address] [address] [address] Zi Finley PROTIMEon 01-16-2022 INR Coag (PPP) [Relative time] 1.04 {INR} Normal [facility] Comment on above: Performed By: #### P T, PTT ####[facility] [address] [place] [address]Dr. Zi Finley INR GUIDELINES SEE BELOW Normal [facility] Comment on above: Result Comment: ANGELY RED INR: 2.0 - 3.0 CONDITIONS NOT LISTED BELOW 2.5 - 3.5 FOR PROSTHETIC HEART VALVE REPLACEMENT 2.5 - 3.5 RECURRENT THROMBOSIS Performed By: #### P T, PTT ####[facility] [address] [place] [address]Dr. Zi Finley PT Coag (PPP) [Time] 11.2 s Normal 9.0-11.6 [facility] Comment on above: Performed By: #### P T, PTT ####[facility] [address] [place], [place] [address]IzDr. Zi Finley PTTon 01-16-2022 aPTT Coag (Bld) [Time] 25.1 s Normal 22.3-36.2 [facility] Comment on above: Performed By: #### P T, PTT #### [facility] [address] [place], [place] [address] Dr. Zi Finley US LYNDON DOP LEG RTon 11-24-19 US LYNDON DOP LEG RT EXAMINATION: US [...] by: LUCIO RAMIREZ Date: 2021-11-23 16:51 Normal [facility] MG MAMM SCREEN 3D MARCIA CADon 11-14-2021 MG MAMM SCREEN 3D MARCIA CAD Patient: EMILY NEGRETE Exam Date: 11/14/2021 : 1960 Gender:F Ordering : DR MAREN MALDONADO . Admission #: [id number] Family : Order #: [id number] CLICK HERE TO VIEW EXAM RADIOLOGY REPORT [...] breast cancer at age 37. LOCATION: [facility] BREAST COMPOSITION: Scattered areas fibroglandular density. FINDINGS: [...] Ramirez M.D. on 11/14/2021 at 13:50 Normal [facility] Ambulatory Visit Summaryon 0 10-24-2021 Ambulatory Visit Summary EMILY NEGRETE :1960 Visit Date:10/24/2021 Ambulatory Visit Instructions Your Diagnosis Seborrheic keratoses Your Care Team Attending Physician - VIKASH ESPINOZA, [place] Primary Care Physician - Joel ESPINOZA, Maren This Is Your Medications List aspirin (aspirin 81 mg Oral EC Tab) cholecalciferol (Vitamin D3 5000 intl units oral capsule) diclofenac (Diclofenac 75mg Tab-DR) metoprolol (Metoprolol tartrate 50 mg Tab) rizatriptan (Maxalt LOG FEEDER 10 mg Tab-Dis) rosuvastatin (Crestor 5 mg Tab) venlafaxine (venlafaxine 75 mg Cap-ER) Procedures Performed History of cervical spine surgery, History of lumbar spine surgery, Rotator cuff repair, EMMA BSO - Total abdominal hysterectomy and bilateral salpingo-oophorectomy , Tubal ligation. Discharge Vitals Heart Rate (Peripheral) [...] 3 times a day Unchanged rizatriptan (Maxalt LOG FEEDER 10 mg Tab-Dis) 1 Tablets By Mouth [...] rhinitis Seborrheic keratoses Vitamin D deficiency Normal [facility] Comprehensive Metabolic Empo n 03-31-2021 Albumin [Mass/Vol] 4.0 g/dL Normal 3.2-5.5 [facility] Comment on above: Performed By: #### E BS A1C, EBS LIPID, EBS CMP #### [facility] [place] [facility] [address] [place] [address] [place] Albumin/Globulin [Mass ratio] 1.4 {ratio} Normal [facility] Comment on above: Performed By: #### E BS A1C, EBS LIPID, EBS CMP #### [facility] [place] [facility] [address] [place] [address] [place] ALP [Catalytic activity/Vol] 80 U/L Normal 32-92 [facility] Comment on above: Performed By: #### E BS A1C, EBS LIPID, EBS CMP #### [facility] [place] [facility] [address] [place] [address] [place] ALT [Catalytic activity/Vol] 21 U/L Normal 10-60 [facility] Comment on above: Performed By: #### E BS A1C, EBS LIPID, EBS CMP #### [facility] [place] [facility] [address] [place] [address] [place] AST [Catalytic activity/Vol] 20 U/L Normal 10-42 [facility] Comment on above: Performed By: #### E BS A1C, EBS LIPID, EBS CMP #### [facility] [place] [facility] [address] [place] [id number] [place] Bilirubin [Mass/Vol] 0.7 mg/dL Normal 0.3-1.2 [facility] Comment on above: Performed By: #### E BS A1C, EBS LIPID, EBS CMP #### [facility] [place] [facility] [address] [place] [address] [place] Calcium [Mass/Vol] 9.9 mg/dL Normal 8.2-10.2 [facility] Comment on above: Performed By: #### E BS A1C, EBS LIPID, EBS CMP #### [facility] [place] [facility] [address] [place] [address] [place] Chloride [Moles/Vol] 102 mmol/L Normal 95-114 [facility] Comment on above: Performed By: #### E BS A1C, EBS LIPID, EBS CMP #### [facility] [place] [facility] [address] CO2 [Moles/Vol] 27.2 mmol/L Normal 22.0-30.[address] [facility] Comment on above: Performed By: #### E BS A1C, EBS LIPID, EBS CMP #### [facility] [place] [facility] [address] Creatinine [Mass/Vol] 0.81 mg/dL Normal 0.44-1.03 [facility] Comment on above: Performed By: #### E BS A1C, EBS LIPID, EBS CMP #### [facility] [address] Estimated GFR ( Lisa > 60 Normal [facility] Comment on above: Result Comment: GFR estimated reference range: According to KDOQI guidelines, <60 ml/min/1.73m2 is sufficient to diagnose a patient with chronic kidney disease. Performed By: #### E BS A1C, EBS LIPID, EBS CMP #### [facility] [place] [facility] [address] Estimated GFR (Non- Am > 60 Normal [facility] Comment on above: Performed By: #### E BS A1C, EBS LIPID, EBS CMP #### [facility] [place] [facility] [address] [place] [address] [place] Globulin (S) [Mass/Vol] 2.9 g/dL Normal [facility] Comment on above: Performed By: #### E BS A1C, EBS LIPID, EBS CMP #### [facility] [place] [facility] [address] [place] [address] [place] Glucose [Mass/Vol] 106 mg/dL High 70-100 [facility] Comment on above: Result Comment: ADA recommended reference range Performed By: #### E BS A1C, EBS LIPID, EBS CMP #### [facility] [place] [facility] [address] [place] [address] [place] Potassium [Moles/Vol] 5.1 mmol/L Normal 3.5-5.1 [facility] Comment on above: Performed By: #### E BS A1C, EBS LIPID, EBS CMP #### [facility] [place] [facility] [address] [place] [address] [place] Protein [Mass/Vol] 6.9 g/dL Normal 6.1-7.9 [facility] Comment on above: Performed By: #### E BS A1C, EBS LIPID, EBS CMP #### [facility] [place] [facility] [address] [place] [address] [place] Sodium [Moles/Vol] 139 mmol/L Normal 136-146 [facility] Comment on above: Performed By: #### E BS A1C, EBS LIPID, EBS CMP #### [facility] [address] Urea nitrogen [Mass/Vol] 20 mg/dL Normal 9-23 [facility] Comment on above: Performed By: #### E BS A1C, EBS LIPID, EBS CMP #### [facility] [address] EBS A1C with Estimated Avleo woodhelen 03-31-2021 Glucose [Mass/Vol] 123 mg/dL Normal [facility] Comment on above: Result Comment: PERF ORMED BY: [place] [address] PATHOLOGIST [employer] KRISTY FREEMAN M.D. Performed By: #### E BS A1C, EBS LIPID, EBS CMP #### [facility] [address] HbA1c (Bld) [Mass fraction] 5.9 % High 4.3-5.6 [facility] Comment on above: Result Comment: Incr eased risk for diabetes: 5.7 - 6.4 diabetes: >6.4 glycemic control for adults with diabetes: <7.0 Performed By: #### E BS A1C, EBS LIPID, EBS CMP #### [facility] [address] Lipid Profileon 03-31-2021 Cholesterol [Mass/Vol] 233 mg/dL High 140-200 [facility] Comment on above: Result Comment: Chol less than 200 mg/dl low risk Chol 201-239 mg/dl borderline risk Chol 240 mg/dl and greater high risk Performed By: #### E BS A1C, EBS LIPID, EBS CMP #### [facility] [address] [place] [address] [place] Cholesterol in HDL [Mass/Vol] 70 mg/dL Normal 35-85 [facility] Comment on above: Result Comment: HDL CHOL ATP-III CLASSIFICATION Cardiovascular Risk HDL > or equal to 60 mg/dL LOW HDL < 40 mg/dL HIGH Performed By: #### E BS A1C, EBS LIPID, EBS CMP #### [facility] [address] Cholesterol.total/C holesterol in HDL [Mass ratio] 3.3 {ratio} Normal <5.0 [facility] Comment on above: Result Comment: PERF ORMED BY: [place] [address] PATHOLOGIST [employer] KRISTY FREEMAN M.D. Performed By: #### E BS A1C, EBS LIPID, EBS CMP #### [facility] [address] LDL Cholesterol,Calcula lucia 132 mg/dL High 0-100 [facility] Comment on above: Result Comment: LDL ATP III CLASSIFICATION LDL less than 100 mg/dL Optimal LDL 100-129 mg/dL Near or above optimal LDL 130-159 mg/dL Borderline high LDL 160-189 mg/dL High LDL greater than 189 mg/dL Very high Performed By: #### E BS A1C, EBS LIPID, EBS CMP #### [facility] [address] [place] [address] [place] Triglyceride w/Reflex 155 mg/dL High 35-149 [facility] Comment on above: Result Comment: TRIG ATP III CLASSIFICATION TRIG less than 150 mg/dL Normal TRIG 150-199 mg/dL Borderline high TRIG 200-500 mg/dL High TRIG greater than 500 mg/dL Very high Standard traceable to the Center for Disease Conrtrol and Prevention (CDC) test method. Performed By: #### E BS A1C, EBS LIPID, EBS CMP #### [facility] [address] [place] [address] [place] VLDL CHOLESTEROL 31 mg/dL Normal [facility] Comment on above: Performed By: #### E BS A1C, EBS LIPID, EBS CMP #### [facility] [address] [place] [address] Vital Signs Date Time Vital Sign Value Performing Clinician Sabine nayak 10-24-2021 15:23-0400 Blood Pressure Location [facility] 10-24-2021 15:23-0400 Diastolic blood pressure 72 mm[Hg] [facility] 10-24-2021 15:23-0400 Heart rate 80 /min [facility] 10-24-2021 15:23-0400 Respiratory rate 16 /min [facility] 10-24-2021 15:23-0400 Systolic blood pressure 136 mm[Hg] [facility] Encounters Encounter Date Encounter Type Care Provider Facility Start: 08-17-2022 End: 08-18-[address] SY LISTED REQUEST Facility:[facility] Start: 02-21-2022 End: 02-21-[address] ALL RICE . Facility:[facility] Start: 02-19-2022 Encounter for preprocedural laboratory examination DR ALL RICE . [facility] Start: 02-17-2022 End: 02-18-[address] ALL RICE . Facility:[facility] Start: 02-17-2022 End: 02-18-2022 Encounter for preprocedural laboratory examination DR ALL RICE . Facility:[facility] Start: 01-31-2022 End: 02-01-[address] MAREN MALDONADO . Facility:[facility] Start: 01-16-2022 End: 01-17-[address] MAREN MALDONADO . Facility:[facility] Start: 11-23-2021 End: 11-24-[address] MAREN MALDONADO . Facility: Start: 11-14-2021 End: 11-15-[address] MAREN MALDONADO . Facility: Start: 10-24-2021 End: 10-24-2021 Patient encounter procedure [facility] Procedures Date Procedure Procedure Detail Performing Clinician History of operative procedure on lumbar spinal structure All NILL History of surgical procedure on cervical spine All N[facility] Ligation of fallopian tube Cortney RAMIREZL Repair of musculoten dinous cuff of shoulder All NILL Total abdominal hyst erectomy with bilateral salpingo-oophorectomy All RAMIREZL Payers Date Payer Category Payer Unknown [id number] 2.16.84 [id number] 1960 Unknown [id number] 2.16.84 [id number] 1960 Unknown [id number] 2.16.84 [id number] 1960 Unknown [id number] 2.16.84 [id number] 1960 Unknown [id number] 2.16.84 [id number] 1960 Unknown [id number] 2.16.84 [id number] 1959 Self-pay [id number] 1959 Unknown [id number] Unknown [id number] 2.16.84 [id number] Social History Date Type Detail Facility Start: 10-24-2021 Tobacco smoking status Never s moked tobacco (finding) [facility] Tobacco smoking status Never [facility] Sex Assigned At Female [facility] Clinical Note 10-24-2021 Note Date & Type [...] 75mg Tab-DR, 1 tab(s), Oral, BID Maxalt LOG FEEDER 10 mg Tab-Dis, 10 mg= 1 tab(s), [...] neoplasm of female breast: Sister. Stroke: Father. [facility] Comment on above: Result Comment: Elec tronically Signed By: VIKASH [email or web address]\Date and Time Signed: 10/24/21 15:53 EDT Evaluation + Plan note Note Date & Type Note Facility Evaluation + Plan note No data available for this section [facility] Discharge instructions Note Date & Type Note Facility Hospital Discharge instructions No data available for this section [facility] Summary Purpose Family History No Family History Records FoundNo Family History Records FoundNo Family History Records Found Advance Directives No Advanced Directives Records FoundNo Advanced Directives Records FoundNo Advanced Directives Records Found Additional Source Comments INFORMATION SOURCE (unrecogn ized section and content) DATE CREATED AUTHOR 07/20/2021 [facility] DATE CREATED AUTHOR AUTHOR'S ORGANIZ ATION 10/25/2021 [facility] DATE CREATED AUTHOR AUTHOR'S ORGANIZ ATION 08/17/2022 [facility] FOR RECORDS PERTAINING TO PATIENTS WHO ARE [...] BE BASED ON THE PRIMARY CLINICAL RECORDS. [facility]. provides no warranty or guarantee of the accuracy or completeness of information in this document.
[2024-01-30 11:40] LABS: Internal Control Within Normal Limits; SARS-CoV-2 Ag NEGATIVE (NEGATIVE)
== END 2024-01-30 09:00 | disposition home or self-care (01) ==
LOC: LAB 08:59
PROVIDERS: PCP Family Medicine; Visit Provider Family Medicine
DX: R50.9 Fever, unspecified (principal)
CPT/HCPCS: 87811

== ENCOUNTER 2024-08-27 08:36 | Outpatient (OUT) | payer OTHER, SELFPAY ==
--- OUTSIDE RECORDS SUMMARY | 2024-08-27 08:50 | XMS_ITS | CCD ---
Author Organization [facility] Care Team Providers Care Molder Machine Name Role Phone Maren Maldonado Primary Care Physician [phone] REQUEST, DR SY LISTED Admitting Unavaila ble [...] drugs] Drug allergy Edema (finding) General Surgery [employer] (1 source) Sulfonamides (Antibiotic) Drug allergy (disorder) [facility] Repository Medications Current Medications Medication [...] 0 Start Date: 10/20/21 Status: Ordered Maxalt CLINICAL BIOCHEMICAL GENETICIST 10 mg Tab-Dis (1 source) Start: 10-20-2021 take 1 tablet by mouth once Maxalt CLINICAL BIOCHEMICAL GENETICIST 10 mg Tab-Dis 10 mg = 1 [...] 08-17-2022 BASO # 0.0 103/ul Normal 0.0-0.1 [facility] Comment on above: Performed By: #### D ATCBC ####[facility] [address] [place] [address]Dr. Zi Finley Basophils/100 WBC (Bld) 0.4 % Normal 0.2-2.0 [facility] Comment on above: Performed By: #### D ATCBC ####[facility] [address] [place] [id number] Finley EO # 0.1 103/ul Normal 0.0-0.7 [facility] Comment on above: Performed By: #### D ATCBC ####[facility] [address] [place] [id number] Finley Eosinophils/100 WBC (Bld) 1.3 % Normal 0.9-7.0 [facility] Comment on above: Performed By: #### D ATCBC ####[facility] [address] [place], [place] [address]Dr. Zi Finley Erythrocyte distribution width (RBC) [Ratio] 13.2 % Normal 11.0-15.0 [facility] Comment on above: Performed By: #### D ATCBC ####[facility] [address] [place], [place] [address]Dr. Zi Finley Hematocrit (Bld) [Volume fraction] 41.1 % Normal 36.0-48.0 [facility] Comment on above: Performed By: #### D ATCBC ####[facility] [address] [place], [place] [address]Dr. Zi Finley Hemoglobin (Bld) [Mass/Vol] 13.2 g/dL Normal 12.0-16.0 [facility] Comment on above: Performed By: #### D ATCBC ####[facility] [address] [place], [place] [address]Dr. Zi Finley IG # 0.04 10e3/ul Critically high 0.00-0.03 [facility] Comment on above: Performed By: #### D ATCBC ####[facility] [address] [place], [place] [address]Dr. Zi Finley IG % 0.4 % Normal 0.0-0.5 [facility] Comment on above: Performed By: #### D ATCBC ####[facility] [address] [place], [place] [address]Dr. Zi Finley LYMPH # 3.2 103/ul Normal 1.2-3.8 [facility] Comment on above: Performed By: #### D ATCBC ####[facility] [address] [place], [place] [address]Dr. Zi Finley Lymphocytes/100 WBC (Bld) 34.0 % Normal 20.5-60.0 [facility] Comment on above: Performed By: #### D ATCBC ####[facility] [address] [place], [place] [address]Dr. Zi Finley MCH (RBC) [Entitic mass] 29.9 pg Normal 26.7-34.0 [facility] Comment on above: Performed By: #### D ATCBC ####[facility] [address] [place] [address]Dr. Zi Finley MCHC (RBC) [Mass/Vol] 32.1 g/dL Normal 29.9-35.2 [facility] Comment on above: Performed By: #### D ATCBC ####[facility] [address] [address]Dr. Zi Finely MCV (RBC) [Entitic vol] 93.2 fL Normal 81.0-99.0 [facility] Comment on above: Performed By: #### D ATCBC ####[facility] [address] [place], [place] [address]Dr. Zi Finley MONO # 0.8 103/ul Normal 0.3-0.8 [facility] Comment on above: Performed By: #### D ATCBC ####[facility] [address] [place], [place] [address]Dr. Zi Tushar Monocytes/100 WBC (Bld) 8.4 % Normal 1.7-12.0 [facility] Comment on above: Performed By: #### D ATCBC ####[facility] [address] [place], [place] [address]Dr. Zi Finley NEUT # 5.2 103/ul Normal 1.4-6.5 [facility] Comment on above: Performed By: #### D ATCBC ####[facility] [address] [place], [place] [address]Dr. Zi Tushar Neutrophils/100 WBC (Bld) 55.5 % Normal 43.0-75.0 [facility] Comment on above: Performed By: #### D ATCBC ####[facility] [address] [place] [address]Dr. Zi Tushar Platelet mean volume (Bld) [Entitic vol] 8.8 fL Critically low 9.5-13.5 [facility] Comment on above: Performed By: #### D ATCBC ####[facility] [address] [place], [place] [address]Bd. Zi Finley PLT 300 103/ul Normal 150-450 [facility] Comment on above: Performed By: #### D ATCBC ####[facility] [address] [place], [place] [address]Pq. Zi Finley RBC 4.41 106/ul Normal 4.20-5.40 [facility] Comment on above: Performed By: #### D ATCBC ####[facility] [address] [place], [place] [address]Ux. Zi Finley WBC 9.3 103/ul Normal 4.0-11.0 [facility] Comment on above: Performed By: #### D ATCBC ####[facility] [address] [place] [id number]. Zi Finley BLANCA - TSHon 08-17-2022 TSH 1.594 uIU/mL Normal 0.358-3.740 [facility] Comment on above: Performed By: #### D ATTSH DATBMP #### [facility] [address] [address] [address] Zi Finley TSH RANGE SEE BELOW Normal [facility] Comment on above: Result Comment: <0.3 4 UIU/ml HYPERTHYROID 0.34-5.60 UIU/ml EUTHYROID >5.60 UIU/ml HYPOTHYROID Performed By: #### D ERIK DATBMP #### [facility] [address] [address] [address] Zi Finley BLANCA- BMP WITH LIPIDon 2022 Anion gap [Moles/Vol] 9.4 mmol/L Normal [facility] Comment on above: Performed By: #### D ATTLINWOOD DATBMP #### [facility] [address] [address] [address] Zi Finley Calcium [Mass/Vol] 9.7 mg/dL Normal 8.5-10.1 [facility] Comment on above: Performed By: #### D ATTSH DATBMP #### [facility] [address] [address] [address] Zi Finley Chloride [Moles/Vol] 107 mmol/L Normal 98-107 [facility] Comment on above: Performed By: #### D ATTLINWOOD, DATBMP #### [facility] [address] [address] [address] Zi Finley Cholesterol [Mass/Vol] 254 mg/dL Critically high <=200 [facility] Comment on above: Performed By: #### D ATTLINWOOD, DATBMP #### [facility] [address] [address] [address] Zi Finley Cholesterol in HDL [Mass/Vol] 70 mg/dL Critically high 40-60 [facility] Comment on above: Performed By: #### D ATTLINWOOD, DATBMP #### [facility] [address] [place] [address] Dr. Zi Finley Cholesterol in LDL [Mass/Vol] 153.2 mg/dL Normal [facility] Comment on above: Performed By: #### D ATTLINWOOD, DATBMP #### [facility] [address] [address] [address] Zi Finley CO2 [Moles/Vol] 32.9 mmol/L Critically high 21.0-32.0 [facility] Comment on above: Performed By: #### D ATTLINWOOD, DATBMP #### [facility] [address] [place] [address] Dr. Zi Finley Creatinine [Mass/Vol] 0.79 mg/dL Normal 0.55-1.02 [facility] Comment on above: Performed By: #### D ATTSH, DATBMP #### [facility] [address] [place] [address] Dr. Zi Finley EGFR-AF TOGOLESE >60 Normal >=60 [facility] Comment on above: Performed By: #### D ATTLINWOOD, DATBMP #### [facility] [address] [place] [address] Dr. Zi Finley EGFR-NON AF TOGOLESE >60 Normal >=60 [facility] Comment on above: Performed By: #### D ATTSH, DATBMP #### [facility] [address] [address] [address] Zi Finley Glucose [Mass/Vol] 109 mg/dL Critically high 74-[address] [facility] Comment on above: Performed By: #### D ERIK DATBMP #### [facility] [address] [address] [address] Zi Finley HDL NORMAL > or = 60 mg/dl - LO W CARDIOVASCULAR RISK <40 mg/dl - HIGH CARDIOVASCULAR RISK Normal [facility] Comment on above: Performed By: #### D ERIK DATBMP #### [facility] [address] [address] [address] Zi Finley LDL CALC NORMAL SEE BELOW Normal [facility] Comment on above: Result Comment: <100 mg/dl OPTIMAL 100 - 129 mg/dl NEAR OR ABOVE OPTIMAL 130 - 159 mg/dl BORDERLINE HIGH 160 - 189 mg/dl HIGH >190 mg/dl VERY HIGH Performed By: #### D ERIK DATBMP #### [facility] [address] [address] [address] Zi Finley Potassium [Moles/Vol] 4.3 mmol/L Normal 3.5-5.1 [facility] Comment on above: Performed By: #### D ERIK DATBMP #### [facility] [address] [address] [address] Zi Finley Sodium [Moles/Vol] 145 mmol/L Normal 136-145 [facility] Comment on above: Performed By: #### D ERIK DATBMP #### [facility] [address] [address] [address] Zi Finley Triglyceride [Mass/Vol] 154 mg/dL Critically high <=150 [facility] Comment on above: Performed By: #### D ERIK DATBMP #### [facility] [address] [address] [address] Zi Finley Urea nitrogen [Mass/Vol] 21.0 mg/dL Critically high 7.0-18.0 [facility] Comment on above: Performed By: #### D ERIK DATBMP #### [facility] [address] [address] [address] Zi Finley Urea nitrogen/Creatinine [Mass ratio] 26.6 mg/mg Normal [facility] Comment on above: Performed By: #### D ATTSH, DATBMP #### [facility] [address] [address] [address] Zi Finley VLDL CALC 30.8 mg/dL Normal [facility] Comment on above: Performed By: #### D ATTSH, DATBMP #### [facility] [address] [address] [address] Zi Finley H PYLORI TISSUEon 02-21-2022 H PYL TISSUE, UREASE Negative Normal NEGATIVE [facility] Comment on above: Performed By: #### H PYLT #### [facility] [address] [address] [address] Zi Fniley Covid-19 PCR (CVDTB)on 02-01 SARS-CoV-2 (COVID-19) RNA VINEET+probe Ql (Unsp spec) Not detected Normal NOT DETECTED [facility] Comment on above: Result Comment: This test is not yet approved or cleared by the [place] FDA. When there are no FDA-approved or cleared tests available, and other criteria are met, FDA can make tests available under an emergency access mechanism called an Emergency Use Authorization (EUA). The EUA for this test is supported by the [place] of Health and Human Service's (HHS's) declaration [...] SARS-CoV-2. Performed By: #### C VDTBH #### [facility] [address] [address] [address] Zi Finley Covid-19 PCR (CVDTBH)on 01-03 SARS-CoV-2 (COVID-19) RNA VINEET+probe Ql (Unsp spec) Not detected Normal NOT DETECTED [facility] Comment on above: Result Comment: [...] for this test is supported by the [place] of Health and Human Service's declaration that [...] used). Performed By: #### C VDTBH #### [facility] [address] [place] [address] Dr. Zi Finley BLEEDING TIMEon 01-16-2022 BLEEDING TIME 6.0 min Normal 1.0-8.[address] [facility] Comment on above: Performed By: #### B LTM ####[facility] [address] [place], [place] [address]RvDr. Zi Finley CBC AUTO DIFFon 01-16-2022 BASO # 0.1 103/ul Normal 0.0-0.1 [facility] Comment on above: Performed By: #### C BC #### [facility] [address] [place] [address] Dr. Zi Finley Basophils/100 WBC (Bld) 0.6 % Normal 0.2-2.0 [facility] Comment on above: Performed By: #### C BC #### [facility] [address] [place] [address] Dr. Zi Finley EO # 0.3 103/ul Normal 0.0-0.7 [facility] Comment on above: Performed By: #### C BC #### [facility] [address] [place] [address] Dr. Zi Finley Eosinophils/100 WBC (Bld) 3.2 % Normal 0.9-7.0 [facility] Comment on above: Performed By: #### C BC #### [facility] [address] [place] [address] Dr. Zi Finley Erythrocyte distribution width (RBC) [Ratio] 13.1 % Normal 11.0-15.0 [facility] Comment on above: Performed By: #### C BC #### [facility] [address] [place] [address] Dr. Zi Finley Hematocrit (Bld) [Volume fraction] 40.9 % Normal 36.0-48.0 [facility] Comment on above: Performed By: #### C BC #### [facility] [address] [place] [address] Dr. Zi Finley Hemoglobin (Bld) [Mass/Vol] 13.0 g/dL Normal 12.0-16.0 [facility] Comment on above: Performed By: #### C BC #### [facility] [address] [place] [address] Dr. Zi Finley IG # 0.03 10e3/ul Normal 0.00-0.03 [facility] Comment on above: Performed By: #### C BC #### [facility] [address] [place] [address] Dr. Zi Finley IG % 0.3 % Normal 0.0-0.5 [facility] Comment on above: Performed By: #### C BC #### [facility] [address] [place] [address] Dr. Zi Finley LYMPH # 3.1 103/ul Normal 1.2-3.8 [facility] Comment on above: Performed By: #### C BC #### [facility] [address] [place] [address] Dr. Zi Finley Lymphocytes/100 WBC (Bld) 35.6 % Normal 20.5-60.0 [facility] Comment on above: Performed By: #### C BC #### [facility] [address] [place] [address] Dr. Zi Finley MANUAL DIFF REQ NO Normal [facility] Comment on above: Performed By: #### C BC #### [facility] [address] [place] [address] Dr. Zi Finley MCH (RBC) [Entitic mass] 29.5 pg Normal 26.7-34.0 [facility] Comment on above: Performed By: #### C BC #### [facility] [address] [place] [address] Dr. Zi Finley MCHC (RBC) [Mass/Vol] 31.8 g/dL Normal 29.9-35.2 [facility] Comment on above: Performed By: #### C BC #### [facility] [address] [place] [address] Dr. Zi Finley MCV (RBC) [Entitic vol] 93.0 fL Normal 81.0-99.0 [facility] Comment on above: Performed By: #### C BC #### [facility] [address] [place] [address] Dr. Zi Finley MONO # 0.8 103/ul Normal 0.3-0.8 [facility] Comment on above: Performed By: #### C BC #### [facility] [address] [place] [address] Dr. Zi Finley Monocytes/100 WBC (Bld) 8.5 % Normal 1.7-12.0 [facility] Comment on above: Performed By: #### C BC #### [facility] [address] [place] [address] Dr. Zi Finley NEUT # 4.6 103/ul Normal 1.4-6.5 [facility] Comment on above: Performed By: #### C BC #### [facility] [address] [place] [address] Dr. Zi Finley Neutrophils/100 WBC (Bld) 51.8 % Normal 43.0-75.0 [facility] Comment on above: Performed By: #### C BC #### [facility] [address] [address] [address] Zi Finley Platelet mean volume (Bld) [Entitic vol] 9.1 fL Critically low 9.5-13.5 [facility] Comment on above: Performed By: #### C BC #### [facility] [address] [address] [address] Zi Finley PLT 292 103/ul Normal 150-450 [facility] Comment on above: Performed By: #### C BC #### [facility] [address] [address] [address] Zi Finley RBC 4.40 106/ul Normal 4.20-5.40 [facility] Comment on above: Performed By: #### C BC #### [facility] [address] [address] [address] Zi Finley WBC 8.8 103/ul Normal 4.0-11.0 [facility] Comment on above: Performed By: #### C BC #### [facility] [address] [address] [address] Zi Finley IRONon 01-16-2022 Iron [Mass/Vol] 66.0 ug/dL Normal 50.0-170.0 [facility] Comment on above: Performed By: #### I LUKE #### [facility] [address] [address] [address] Zi Finley PROTIMEon 01-16-2022 INR Coag (PPP) [Relative time] 1.04 {INR} Normal [facility] Comment on above: Performed By: #### P T, PTT ####[facility] [address] [address]Dr. Zi Finley INR GUIDELINES SEE BELOW Normal [facility] Comment on above: Result Comment: ANGELY RED INR: 2.0 - 3.0 CONDITIONS NOT LISTED BELOW 2.5 - 3.5 FOR PROSTHETIC HEART VALVE REPLACEMENT 2.5 - 3.5 RECURRENT THROMBOSIS Performed By: #### P T, PTT ####[facility] [address] [place] [address]Dr. Zi Finley PT Coag (PPP) [Time] 11.2 s Normal 9.0-11.6 [facility] Comment on above: Performed By: #### P T, PTT ####[facility] [address] [place], [place] [address]BuDr. Zi Finley PTTon 01-16-2022 aPTT Coag (Bld) [Time] 25.1 s Normal 22.3-36.2 [facility] Comment on above: Performed By: #### P T, PTT #### [facility] [address] [place], [place] [address] Dr. Zi Finley US LYNDON DOP LEG [...] LUCIO RAMIREZ Date: 2021-11-23 16:51 Normal [facility] MG MAMM SCREEN 3D MARCIA CADon 11-14-2021 MG MAMM SCREEN 3D MARCIA CAD Patient: EMILY NEGRETE Exam Date: 11/14/2021 : 1960 Gender:F Ordering : DR MAREN MALDONADO . Admission #: [id number] Family : Order #: [id number] CLICK HERE TO VIEW EXAM RADIOLOGY REPORT [...] breast cancer at age 37. LOCATION: [facility] BREAST COMPOSITION: Scattered areas fibroglandular [...] Ramirez M.D. on 11/14/2021 at 13:50 Normal [facility] Ambulatory Visit Summaryon 0 10-24-2021 Ambulatory Visit [...] (Metoprolol tartrate 50 mg Tab) rizatriptan (Maxalt CLINICAL BIOCHEMICAL GENETICIST 10 mg Tab-Dis) rosuvastatin (Crestor 5 mg [...] 3 times a day Unchanged rizatriptan (Maxalt CLINICAL BIOCHEMICAL GENETICIST 10 mg Tab-Dis) 1 Tablets By Mouth [...] rhinitis Seborrheic keratoses Vitamin D deficiency Normal [facility] Comprehensive Metabolic Empo n 03-31-2021 Albumin [Mass/Vol] 4.0 g/dL Normal 3.2-5.5 [facility] Comment on above: Performed By: #### E BS A1C, EBS LIPID, EBS CMP #### [facility] [address] [place] [address] [place] Albumin/Globulin [Mass ratio] 1.4 {ratio} Normal [facility] Comment on above: Performed By: #### E BS A1C, EBS LIPID, EBS CMP #### [facility] [address] [place] [address] [place] ALP [Catalytic activity/Vol] 80 U/L Normal 32-92 [facility] Comment on above: Performed By: #### E BS A1C, EBS LIPID, EBS CMP #### [facility] [address] [place] [address] [place] ALT [Catalytic activity/Vol] 21 U/L Normal 10-60 [facility] Comment on above: Performed By: #### E BS A1C, EBS LIPID, EBS CMP #### [facility] [address] [place] [address] [place] AST [Catalytic activity/Vol] 20 U/L Normal 10-42 [facility] Comment on above: Performed By: #### E BS A1C, EBS LIPID, EBS CMP #### [facility] [address] [place] [id number] [place] Bilirubin [Mass/Vol] 0.7 mg/dL Normal 0.3-1.2 [facility] Comment on above: Performed By: #### E BS A1C, EBS LIPID, EBS CMP #### [facility] [address] [place] [address] [place] Calcium [Mass/Vol] 9.9 mg/dL Normal 8.2-10.2 [facility] Comment on above: Performed By: #### E BS A1C, EBS LIPID, EBS CMP #### [facility] [address] [place] [address] [place] Chloride [Moles/Vol] 102 mmol/L Normal 95-114 [facility] Comment on above: Performed By: #### E BS A1C, EBS LIPID, EBS CMP #### [facility] [address] CO2 [Moles/Vol] 27.2 mmol/L Normal 22.0-30.0 [facility] Comment on above: Performed By: #### E BS A1C, EBS LIPID, EBS CMP #### [facility] [address] Creatinine [Mass/Vol] 0.81 mg/dL Normal 0.44-1.03 [facility] Comment on above: Performed By: #### E BS A1C, EBS LIPID, EBS CMP #### [facility] [address] Estimated GFR ( Lisa > 60 Normal [facility] Comment on above: Result Comment: GFR estimated reference range: According to KDOQI guidelines, <60 ml/min/1.73m2 is sufficient to diagnose a patient with chronic kidney disease. Performed By: #### E BS A1C, EBS LIPID, EBS CMP #### [facility] [address] Estimated GFR (Non- Am > 60 Normal [facility] Comment on above: Performed By: #### E BS A1C, EBS LIPID, EBS CMP #### [facility] [address] [place] [address] [place] Globulin (S) [Mass/Vol] 2.9 g/dL Normal [facility] Comment on above: Performed By: #### E BS A1C, EBS LIPID, EBS CMP #### [facility] [address] [place] [address] [place] Glucose [Mass/Vol] 106 mg/dL High 70-100 [facility] Comment on above: Result Comment: ADA recommended reference range Performed By: #### E BS A1C, EBS LIPID, EBS CMP #### [facility] [address] [place] [address] [place] Potassium [Moles/Vol] 5.1 mmol/L Normal 3.5-5.1 [facility] Comment on above: Performed By: #### E BS A1C, EBS LIPID, EBS CMP #### [facility] [address] [place] [address] [place] Protein [Mass/Vol] 6.9 g/dL Normal 6.1-7.9 [facility] Comment on above: Performed By: #### E BS A1C, EBS LIPID, EBS CMP #### [facility] [address] [place] [address] [place] Sodium [Moles/Vol] 139 mmol/L Normal 136-146 [facility] Comment on above: Performed By: #### E BS A1C, EBS LIPID, EBS CMP #### [facility] [address] Urea nitrogen [Mass/Vol] 20 mg/dL Normal 9-23 [facility] Comment on above: Performed By: #### E BS A1C, EBS LIPID, EBS CMP #### [facility] [address] EBS A1C with Estimated Avleo woodhelen 03-31-2021 Glucose [Mass/Vol] 123 mg/dL Normal [facility] Comment on above: Result Comment: PERF ORMED BY: [place] [address] PATHOLOGIST MARKETING INSTRUCTOR KRISTY FREEMAN M.D. Performed By: #### E BS A1C, EBS LIPID, EBS CMP #### [facility] [address] HbA1c (Bld) [Mass fraction] 5.9 % High 4.3-5.6 [facility] Comment on above: Result Comment: Incr eased risk for diabetes: 5.7 - 6.4 diabetes: >6.4 glycemic control for adults with diabetes: <7.0 Performed By: #### E BS A1C, EBS LIPID, EBS CMP #### [facility] [address] Lipid Profileon 03-31-2021 Cholesterol [Mass/Vol] 233 mg/dL High 140-200 [facility] Comment on above: Result Comment: Chol less than 200 mg/dl low risk Chol 201-239 mg/dl borderline risk Chol 240 mg/dl and greater high risk Performed By: #### E BS A1C, EBS LIPID, EBS CMP #### [facility] [address] [place] [address] [place] Cholesterol in HDL [Mass/Vol] 70 mg/dL Normal 35-85 [facility] Comment on above: Result Comment: HDL CHOL ATP-III CLASSIFICATION Cardiovascular Risk HDL > or equal to 60 mg/dL LOW HDL < 40 mg/dL HIGH Performed By: #### E BS A1C, EBS LIPID, EBS CMP #### [facility] [address] Cholesterol.total/C holesterol in HDL [Mass ratio] 3.3 {ratio} Normal <5.0 [facility] Comment on above: Result Comment: PERF ORMED BY: [place] [address] PATHOLOGIST MARKETING INSTRUCTOR KRISTY FREEMAN M.D. Performed By: #### E BS A1C, EBS LIPID, EBS CMP #### [facility] [address] LDL Cholesterol,Calcula lucia 132 mg/dL High 0-100 [facility] Comment on above: Result Comment: LDL ATP III CLASSIFICATION LDL less than 100 mg/dL Optimal LDL 100-129 mg/dL Near or above optimal LDL 130-159 mg/dL Borderline high LDL 160-189 mg/dL High LDL greater than 189 mg/dL Very high Performed By: #### E BS A1C, EBS LIPID, EBS CMP #### [facility] [address] [place] [address] [place] Triglyceride w/Reflex 155 mg/dL High 35-149 [facility] Comment on above: Result Comment: TRIG ATP III CLASSIFICATION TRIG less than 150 mg/dL Normal TRIG 150-199 mg/dL Borderline high TRIG 200-500 mg/dL High TRIG greater than 500 mg/dL Very high Standard traceable to the Center for Disease Conrtrol and Prevention (CDC) test method. Performed By: #### E BS A1C, EBS LIPID, EBS CMP #### [facility] [address] [place] [address] [place] VLDL CHOLESTEROL 31 mg/dL Normal [facility] Comment on above: Performed By: #### E BS A1C, EBS LIPID, EBS CMP #### [facility] [address] [place] [address] Vital Signs Date Time Vital Sign Value Performing Clinician Sabine anyak 10-24-2021 15:23-0400 Blood Pressure Location [facility] 10-24-2021 15:23-0400 Diastolic blood pressure 72 mm[Hg] [facility] 10-24-2021 15:23-0400 Heart rate 80 /min [facility] 10-24-2021 15:23-0400 Respiratory rate 16 /min [facility] 10-24-2021 15:23-0400 Systolic blood pressure 136 mm[Hg] [facility] Encounters Encounter Date Encounter Type Care Provider Facility Start: 08-17-2022 End: 08-18-[address] SY LISTED REQUEST Facility:[facility] Start: 02-21-2022 End: 02-21-[address] ALL RICE . Facility:[facility] Start: 02-19-2022 Encounter for preprocedural laboratory examination DR ALL RICE . [facility] Start: 02-17-2022 End: 02-18-2022 ambulatory [...] RAMIREZL Payers Date Payer Category Payer Unknown [id number] 2.16.84 [id number] 1960 Unknown [id number] 2.16.84 [id number] 1960 Unknown [id number] 2.16.84 [id number] 1960 Unknown [id number] 2.16.84 [id number] 1960 Unknown [id number] 2.16.84 [id number] 1960 Unknown [id number] 2.16.84 [id number] 1959 Self-pay [id number] 1959 Unknown [id number] Unknown [id number] 2.16.84 [id number] Social History Date Type Detail Facility Start: 10-24-2021 Tobacco smoking status Never s moked tobacco (finding) [facility] Tobacco smoking status Never Gener al [facility] Sex Assigned At Female I[facility] Clinical Note 10-24-2021 Note Date & Type [...] 75mg Tab-DR, 1 tab(s), Oral, BID [facility] [employer]ICAL [employer]OCHE[employer] GENETICIST 10 mg Tab-Dis, 10 mg= 1 tab(s), [...] neoplasm of female breast: Sister. Stroke: Father. [facility] Comment on above: Result Comment: Elec tronically Signed By: VIKASH [email or web address]\Date and Time Signed: 10/24/21 15:53 EDT Evaluation + Plan note Note Date & Type Note Facility Evaluation + Plan note No data available for this section [facility] Discharge instructions Note Date & Type Note Facility Hospital Discharge instructions No data available for this section [facility] Summary Purpose Family History No Family History Records FoundNo Family History Records FoundNo Family History Records Found Advance Directives No Advanced Directives Records FoundNo Advanced Directives Records FoundNo Advanced Directives Records Found Additional Source Comments INFORMATION SOURCE (unrecogn ized section and content) DATE CREATED AUTHOR 07/20/2021 [facility] DATE CREATED AUTHOR AUTHOR'S ORGANIZ ATION 10/25/2021 [facility] DATE CREATED AUTHOR AUTHOR'S ORGANIZ ATION 08/17/2022 [facility] FOR RECORDS PERTAINING TO PATIENTS [...] BE BASED ON THE PRIMARY CLINICAL RECORDS. [employer] [facility] provides no warranty or guarantee of the accuracy or completeness of information in this document.
--- NOTE | 2024-08-27 09:02 | XR_ITS ---
The [address] [address] Patient Name: EMILY NEGRETE MRN: [id number] date: 1960 Sex: F Assigned Patient Location: LAB Current Patient Location: LAB Accession/Order Number: [id number] Exam Date: 08/27/2024 16:04 Report Date: 08/27/2024 16:04 At the request of: MAREN RIGGINS MD Procedure: XR chest 2V Chest 2 views CLINICAL HISTORY: Fever, Body Aches, Acute Cough COMPARISON: None FINDINGS: Heart is normal in size. No consolidation pneumothorax pleural effusion or free air. Scoliosis. XR/XR chest 2V IMPRESSION: NO ACUTE CARDIOPULMONARY ABNORMALITY. Impression dictated by: Bishop Contreras Jr., DRobORob08/27/2024 4:04 PM Dictation Location: [place] [address] Electronically authenticated by: [id number] Y Date: 08/27/2024 16:04
[2024-08-27 09:18] LABS: Basophils Percent Auto 0.4 % (0.2-2.0); Eosinophils Absolute Auto 0.3 10^3/uL (0.0-0.7); Eosinophils Percent Auto 2.7 % (0.9-7.0); Hematocrit 42.8 % (36.0-48.0); Immature Granulocytes Abs Auto 0.03 10^3/uL (0.00-0.03); Immature Granulocytes Pct Auto 0.3 % (0.0-0.5); Lymphocytes Absolute Auto 4.6 10^3/uL (1.2-3.8); Lymphocytes Percent Auto 49.6 % (20.5-60.0); Mean Corpuscular HGB Conc 32.7 g/dL (29.9-35.2); Mean Corpuscular Hemoglobin 29.3 pg (26.7-34.0); Mean Corpuscular Volume 89.5 fL (81.0-99.0); Mean Platelet Volume 9.2 fL (9.5-13.5); Monocytes Absolute Auto 0.7 10^3/uL (0.3-0.8); Monocytes Percent Auto 7.1 % (1.7-12.0); Neutrophils Absolute Auto 3.7 10^3/uL (1.4-6.5); Neutrophils Percent Auto 39.9 % (43.0-75.0); Platelet Count 226 10^3/uL (150-450); Red Blood Count 4.78 10^6/uL (4.20-5.40); Red Cell Distribution Width 12.8 % (11.0-15.0); White Blood Count 9.3 10^3/uL (4.0-11.0)
[2024-08-27 11:39] LABS: Anion Gap 12.6; Carbon Dioxide 30.5 mmol/L (21.0-32.0); Chloride 103 mmol/L (98-107); Glucose 115 mg/dL (74-106); Potassium 4.1 mmol/L (3.5-5.1); Sodium 142 mmol/L (136-145)
[2024-08-27 11:40] LABS: Alanine Aminotransferase 29 U/L (14-59); Albumin Level 3.5 g/dL (3.4-5.0); Alkaline Phosphatase 115 U/L (46-116); Aspartate Amino Transferase 18 U/L (15-37); BUN Creatinine Ratio 25.8; Bilirubin Total 0.5 mg/dL (0.2-1.0); Calcium 9.4 mg/dL (8.5-10.1); Estimated GFR (African America >60 (>=60 mL/min/1.73m^2); Estimated GFR (Non-African Ame 58 (>=60 mL/min/1.73m^2); Globulin 3.6 g/dL; Total Protein 7.1 g/dL (6.4-8.2)
== END 2024-08-27 08:37 | disposition home or self-care (01) ==
LOC: LAB 08:41
PROVIDERS: PCP Family Medicine; Visit Provider Family Medicine
DX: Z00.00 Encounter for general adult medical examination without abnormal findings (principal); R50.9 Fever, unspecified; R52 Pain, unspecified; R05.1 Acute cough
CPT/HCPCS: 36415; 71046; 80053; 83880; 85025

== ENCOUNTER 2025-04-05 14:56 | Outpatient (RCR) | payer OTHER, SELFPAY | END 2025-04-27 11:20 | disposition home or self-care (01) | LOC: PT 14:56 | PROVIDERS: PCP Family Medicine | DX: Z96.651 Presence of right artificial knee joint (principal) | CPT/HCPCS: 97110; 97161 ==